=== PATIENT | female | born 1970 | race American Indian/Alaskan Native ===

== ENCOUNTER 2019-06-12 11:43 | Emergency (ER) | payer OTHER, MEDICARE ==
[~2019-06-12] VITALS: Ht 172.7 cm; Wt 80.7 kg
[~2019-06-12 11:43] MED LIST: AMITRIPTYLINE H25 MG PO; AMITRIPTYLINE H50 MG PO; BENADRYL25 MG PO; BUPROPION HCL100 MG PO; BUPROPION HCL150 M2 PO; BUTALB-ACETAMI1 EACH PO; CALCIUM500 MG PO; CLONAZEPAM1 MG PO; CRUTCH1 EACH; DILAUDID4 MG PO; DOXYCYCLINE HYC50 MG PO; FLUOXETINE HCL10 MG PO; FLUOXETINE HCL20 M1 PO; HYDROCODON-ACE1 EAC8 PO; IMITREX100 MG PO; KEFLEX500 MG PO; KLONOPIN1 MG PO; KONDREMUL2.5 ML/5 M PO; MACROBID 100 M100 MG PO; MIRENA1 EACH IY; NORCO 10-325 T1 EACH PO; NORCO 5-325 TA1 EACH PO; OMEPRAZOLE20 MG PO; PERCOCET 5-3251 EACH PO; PREDNISONE20 MG PO; PROZAC20 MG PO; SENNA PLUS TAB1 EACH PO; SENOKOT8.6 MG PO; SUMATRIPTAN SU100 MG PO; SUMATRIPTAN SUC25 MG PO; TOPAMAX25 MG PO; TRAZODONE HCL50 MG PO; VITAMIN B-122500 MCG SL; VITAMIN D350000 UNIT PO; VITAMIN D5000 UNIT PO; ZANAFLEX4 MG PO; ZOLPIDEM TARTRA10 MG PO; [UNRECOGNIZED DRUG - REMARK]
--- OUTSIDE RECORDS SUMMARY | 2019-06-12 11:46 | XMS ---
Christiano Notification: AZAM TIERNEY Security Credit Control Administrator Events No recent Security Events currently on file CRITERIA MET - [place] CARE PROVIDERS Lily Brito Primary [facility] PHONE: Unknown DOCTOR SALAS Primary Care Current PHONE: Unknown RICH VERA Primary [facility] PHONE: Unknown LILY BRITO Primary Care Current PHONE: Unknown LILY BRITO Primary Care 09/23/2013-Current PHONE: Unknown Alesha has no Care Guidelines for this patient. EIdrisDIdris VISIT COUNT (12 MO.) 2 TENA [facility] TOTAL 3 NOTE: Visits indicate total known visits. ED/UCC VISIT TRACKING (12 MO.) 06/12/2019 11:44 [facility] [place] TYPE: Emergency COMPLAINT: - FALL, BACK PAIN 05/09/2019 17:37 [place] [place] TYPE: Emergency COMPLAINT: - CHEST PAIN DIAGNOSES: - Other intermodal customer service (current) drug therapy - Nicotine dependence, unspecified, uncomplicated - Chest pain, unspecified - Allergy status to other antibiotic agents status 06/24/2018 13:50 [facility] TYPE: Emergency DIAGNOSES: 0. EMS MIGRAINE INPATIENT VISIT TRACKING (12 MO.) No inpatient visits to display in this time frame [id number]
[2019-06-12] MEDS ORDERED: CITALOPRAM HBR40 MG PO (11:51)
[2019-06-12] MEDS ORDERED: NORCO 7.5-3251 EACH PO (13:42)
[2019-06-12] MEDS ORDERED: ONDANSETRON ODT8 MG PO (16:56)
== END 2019-06-12 13:59 | disposition home or self-care (01) ==
LOC: ED 11:43
DX: S30.0XXA Contusion of lower back and pelvis, initial encounter (principal); Z88.1 Allergy status to other antibiotic agents; Z79.899 Other long term (current) drug therapy; W10.8XXA Fall (on) (from) other stairs and steps, initial encounter
CPT/HCPCS: 72100; 73502; 99283

== ENCOUNTER 2019-06-12 14:21 | Emergency (ER) | payer OTHER, MEDICARE ==
[~2019-06-12] VITALS: Ht 172.7 cm; Wt 80.7 kg
[~2019-06-12 14:21] MED LIST changes: +CITALOPRAM HBR40 MG PO; +NORCO 7.5-3251 EACH PO
--- OUTSIDE RECORDS SUMMARY | 2019-06-12 14:24 | XMS ---
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 PHONE: Unknown LILY BRITO Primary Care Current PHONE: Unknown LILY BRITO Primary Care 09/23/2013-Current PHONE: Unknown Alesha has no Care Guidelines for this patient. Galindo VISIT COUNT (12 MO.) 3 TENA [facility] TOTAL 4 NOTE: Visits indicate total known visits. ED/UCC VISIT TRACKING (12 MO.) 06/12/2019 14:21 [facility] [place] TYPE: Emergency COMPLAINT: - VOMITING 06/12/2019 11:44 [facility] [place] TYPE: Emergency COMPLAINT: - FALL, BACK PAIN 05/09/2019 17:37 [place] [place] TYPE: Emergency COMPLAINT: - CHEST PAIN DIAGNOSES: - Other [facility] (current) drug therapy - Nicotine dependence, unspecified, uncomplicated - Chest pain, unspecified - Allergy status to other antibiotic agents status 06/24/2018 13:50 [facility] TYPE: Emergency DIAGNOSES: 0. EMS MIGRAINE INPATIENT VISIT TRACKING (12 MO.) No inpatient visits to display in this time frame [id number]
[2019-06-12] MEDS ORDERED: ONDANSETRON ODT8 MG PO (16:56)
== END 2019-06-12 17:10 | disposition home or self-care (01) ==
LOC: ED 14:21
DX: R55 Syncope and collapse (principal); S00.03XA Contusion of scalp, initial encounter; F17.200 Nicotine dependence, unspecified, uncomplicated; Z88.1 Allergy status to other antibiotic agents; Z79.899 Other long term (current) drug therapy; W18.30XA Fall on same level, unspecified, initial encounter
CPT/HCPCS: 99283

== ENCOUNTER 2019-06-24 21:36 | Emergency (ER) | payer OTHER, MEDICARE ==
[~2019-06-24] VITALS: Ht 172.7 cm; Wt 80.7 kg
--- OUTSIDE RECORDS SUMMARY | ~2019-06-24 | XMS | Encounter Summary ---
Demographics + + + | Address | [address] | | | [place] [address] | + + + | Home Phone | | + + + | Preferred Language | Unknown | + + + | Marital Status | Single | + + + | Mandaen Affiliation | LDS | + + + | Race | or | + + + | Ethnic Group | Not or | + + + Author + + + | Author | [facility] | + + + | Organization | [facility] | + + + | Address | Unknown | + + + | Phone | Unavailable | + + + Support + + +---------+ + | Name | Relationship | Address | Phone | + + +---------+ + | Андрей Kenney | ECON | Unknown | | + + +---------+ + Care Team Providers + +------+ + | Care Oil Inspector Name | Role | Phone | + +------+ + | Kwadwo Brito MD | PCP | | + +------+ + Encounter Details +--------+------+ + + + | Date | Type | Department | Care Team | Description | +--------+------+ + + + | 08/13/ | Lab | Laboratory at [facility] | | Dizziness | | 2012 | | [address] | | | | | | [place], [place] | | | | | | [address] | | | | | | [phone] | | | +--------+------+ + + + Social History + +-------+ [...] | + +--------+ + + + | [facility] - CBC ONLY | Routin | 08/13/2013 | Dizziness | Results for this | | | e | 2:25 PM | | procedure are in the | | | | PST | | results section. | + +--------+ + + + | [facility] - COMPLETE | Routin | 08/13/2013 | Dizziness | Results for this | | METABOLIC SET | e | 2:25 PM | | procedure are in the | | | | PST | | results section. | + +--------+ + + + | TSH | Routin | 08/13/2013 | Dizziness | Results for this | | | e | 2:25 PM | | procedure are in the [...] influenced by a variety of environmental | [facility] | | influences, age, gender and ethnicity. The supplied reference limits | LABORATORY | | are based on published values utilizing a similar TSH assay, and | SERVICES, CORE | | should be interpreted with caution. Test now performed at [facility]. New | | | method effective 08/05/13. Age-adjusted reference ranges are in use. | | + + + + + + + + | Performing | Address | City/State/Zipcode | Phone Number | | Organization | | | | + + + + + | [facility] | [address] | [place] [address] | | | SERVICES, CORE | [address] | | | + + + + + [facility] - COMPLETE METABOLIC SET (08/13/2013 2:25 PM [...] | | | LABORATORY | | | [place] | | | SERVICES, | | | [...] | | Interpretive Information: <60 mL/min/1.73 sq | SERVICES, | | m Chronic Kidney Disease <15 mL/min/1.73 | [facility] | | sq m Kidney Failure Estimated GFR greater | HEALTH + | | that 60 mL/min/1.73 sq m is of limited clinical value. The MDRD | HEALING | | equation is not valid in the following situations: - Patients under | | | 18 years of age - Severe malnutrition or obesity - Vegetarian diet | | | - Rapidly changing kidney function | | + + + + + + + + | Performing | Address | City/State/Zipcode | Phone Number | | Organization | | | | + + + + + | [facility] | [address] | [place] [address] | | | [facility] | | | | | HEALTH [...] LABORATORY | | | | | | [facility] | | | | | | [facility] | | | | | | HEALTH + | | | | | | HEALING | | + +-------+ + + + | RED CELL | 4.26 | 4.00 - 5.20 | [facility] | | | COUNT | | M/cu mm | LABORATORY | | | | | | [facility], | | | | | | [facility] | | | | | | [...] SERVICES, | | | | | | [facility] | | | | | | [...] | | | SERVICES, | | | [facility] | | | HEALTH + | | | HEALING | + + + + + + + + | Performing | Address | City/State/Zipcode | Phone Number | | Organization | | | | + + + + + | [facility] | [address] | [place] [address] | | | SERVICES, [facility] | | | | | HEALTH + HEALING | | | | + + + + + documented in this encounter Visit Diagnoses + + | Diagnosis | + + | Dizziness Dizziness and giddiness | + + documented in this encounter"
--- OUTSIDE RECORDS SUMMARY | ~2019-06-24 | XMS | Clinical Summary ---
Demographics + + + | Address | [address] | | | [place] [address] | + + + | Home Phone | | + + + | Preferred Language | Unknown | + + + | Marital Status | Single | + + + | Buddhism Affiliation | LDS | + + + | Race | or | + + + | Ethnic Group | Not or | + + + Author + + + | Author | [facility] | + + + | Organization | [facility] | + + + | Address | Unknown | + + + | Phone | Unavailable | + + + Support + + +---------+ + | Name | Relationship | Address | Phone | + + +---------+ + | Андрей Kenney | ECON | Unknown | | + + +---------+ + Care Team Providers + +------+ + | Care Service Technician Copier Name | Role | Phone | + +------+ + PCP | Unavailable | + +------+ + Source Comments [facility] is fully live on both [facility] and [facility] In[facility] Allergies Not on File Medications + + + +---------+------+------+-------+ | Medication | Sig | Dispensed | Refills | Star | End | Statu | | | | | | t | Date | s | | | | | | Date | | | + + + +---------+------+------+-------+ | CITALOPRAM 40 mg | Take 40 mg by mouth | | 0 | 11 | | Activ | | oral tablet | once daily. | | | 20 | | e | | | | | | 13 | | | + + + +---------+------+------+-------+ | CLONAZEPAM 1 mg | Take 1 mg by mouth | | 0 | 11/1 | | Activ | | oral tablet | as needed. | | | 4/20 | | e | | | | | | 13 | | | + + + +---------+------+------+-------+ | ZOLPIDEM 5 mg oral | Take 5 mg by mouth | | 0 | 10/0 | | Activ | | tablet | as needed. | | | /20 | | e | | | | | | 13 | | | + + + +---------+------+------+-------+ | | Take 5 tablets by | | 0 | 11/1 | | Activ | | HYDROCODONE-ACETAMIN | mouth as needed. | | | 1/20 | | e | | OPHEN 5-325 mg oral | | | | 13 | | | | tablet | | | | | | | + + + +---------+------+------+-------+ | METHOCARBAMOL 500 | Take 500 mg by mouth | | 0 | 11/1 | | Activ | | mg oral tablet | as needed. | | | 10/12 | | e | | | | | | 13 | | | + + + +---------+------+------+-------+ | PLUS WITH | | | 0 | 07/24 | | Activ | | IRON, CA, 29 mg | | | | 02/09 | | e | | iron- 1 mg oral | | | | 13 | | | | tablet | | | | | | | + + + +---------+------+------+-------+ | ferrous gluconate | Take 300 mg by mouth | | 0 | | | Activ | | 325 mg (36 mg iron) | two times daily. | | | | | e | | oral tablet | | | | | | | + + + +---------+------+------+-------+ | CYANOCOBALAMIN, | Take by mouth. | | 0 | | | Activ | | VITAMIN B-12, | | | | | | e | | (VITAMIN B-12 ORAL) | | | | | | | + + + +---------+------+------+-------+ | ERGOCALCIFEROL, | Take 1,500 Units by | | 0 | | | Activ | | VITAMIN D2, (VITAMIN | mouth. | | | | | e | | D ORAL) | | | | | | | + + + +---------+------+------+-------+ Active Problems Not on file Social History [...] | + + Last Filed Vital Signs + + + [...] | | + + + + + Plan of Treatment + + + + + | Health Maintenance | Due Date | Last Done | Comments | + + + + + | Influenza (Flu) | | | | | vaccination (#1) | 9 | | | + + + + + | Pneumococcal | Aged Out | | No longer eligible | | vaccination | | | based on patient's | | | | | age to complete this | | | | | topic | + + + + + Results Not on filefrom Last 3 Months Insurance + +--------+ +--------+ + +--------+ | Payer | Benefi | Subscriber | Effect | Phone | Address | Type | | | t Plan | ID | gaudencio | | | | | | / | | Dates | | | | | | Group | | | | | | + +--------+ +--------+ + +--------+ | [employer] | FIRST | xxxxxxxxx | | | | PPO | | | CHOICE | | 013-Pr | | | | | | | | esent | | | | | | HEALTH | | | | | | + +--------+ +--------+ + +--------+ | MEDICAID [place] | OHP | [id number] | 04/23/20 | [phone] | [address] | [address] | | | PLUS | | 14-Pre | 6 | [address] | id | | | OPEN | | sent | | [place] | | | | CARD | | | | [id number] | | + +--------+ +--------+ + +--------+ + +--------+ +--------+ + + | Guarantor Name | Accoun | Relation to | Date | Phone | Billing Address | | | t Type | Patient | of | | | | | | | | | | + +--------+ +--------+ + + | Sherrie Jewell | Person | Self | [birth year] | [address] | | | al/Fam | | 1970 | [phone] | [place] [address] | | | angela | | | 3 (Home) | | + +--------+ +--------+ + +
--- OUTSIDE RECORDS SUMMARY | ~2019-06-24 | XMS | Encounter Summary ---
Demographics + + + | Address | [address] | | | [place] [address] | + + + | Home Phone | | + + + | Preferred Language | Unknown | + + + | Marital Status | Single | + + + | Jainism Affiliation | LDS | + + + | Race | or | + + + | Ethnic Group | Not or | + + + Author + + + | Author | [facility] | + + + | Organization | [facility] | + + + | Address | Unknown | + + + | Phone | Unavailable | + + + Support + + +---------+ + | Name | Relationship | Address | Phone | + + +---------+ + | Андрей Kenney | ECON | Unknown | | + + +---------+ + Care Team Providers + +------+ + | Care Indigo Mixer Name | Role | Phone | + [...] Ray | | | | | at [facility] | [facility] | | | | | [address] | [place] [address] | | | | | [facility] | | | | | | Mailcode: [address] | | | | | | [facility] | | | | | | [place], | | | | | | [place] [address] | | | | | | [phone] | | | +--------+ + + + [...] + + documented in this encounter Results 12 LEAD ECG (08/13/2013 1:55 PM PST) [...] view image for the detailed interpretation from [employer]. | CARDIOLOGY | + + + + + | Procedure Note | + + | Interface, Cardiology Results - 08/13/2013 10:36 PM PST Please click on view image | | for the detailed interpretation from [employer] results. | + + + + + + + | Performing | Address | City/State/Zipcode | Phone Number | | Organization | | | | + + + + + | [facility] | [address] | [place], [place] | | | CARDIOLOGY | [address] | [address] | | + + + + + documented in this encounter Visit Diagnoses Not on filedocumented in this encounter
--- OUTSIDE RECORDS SUMMARY | ~2019-06-24 | XMS | Encounter Summary ---
Demographics + + + | Address | [address] | | | [place] [address] | + + + | Home Phone | | + + + | Preferred Language | Unknown | + + + | Marital Status | Single | + + + | Scientologist Affiliation | LDS | + + + | Race | or | + + + | Ethnic Group | Not or | + + + Author + + + | Author | [facility] | + + + | Organization | [facility] | + + + | Address | Unknown | + + + | Phone | Unavailable | + + + Support + + +---------+ + | Name | Relationship | Address | Phone | + + +---------+ + | Андрей Kenney | ECON | Unknown | | + + +---------+ + Care Team Providers + +------+ + | Care Coal Hauler Name | Role | Phone | + [...] Ray | | | | | at [facility] | [facility] | | | | | [address] | [place] [address] | | | | | [facility] | | | | | | Mailcode: [id number] [place] | | | | | | [facility] | | | | | | [place], | | | | | | [place] [address] | | | | | | [phone] | | | +--------+ + + + [...] view image for the detailed interpretation from [employer]. | CARDIOLOGY | + + + + + | Procedure Note | + + | Interface, Cardiology Results - 08/13/2013 10:36 PM PST Please click on view image | | for the detailed interpretation from [employer] results. | + + + + + + + | Performing | Address | City/State/Zipcode | Phone Number | | Organization | | | | + + + + + | [facility] | [address] | [place], [place] | | | CARDIOLOGY | [address] | [address] | | + + + + + documented in this encounter Visit Diagnoses Not on filedocumented in this encounter
--- OUTSIDE RECORDS SUMMARY | ~2019-06-24 | XMS | Clinical Summary ---
Demographics + + + | Address | [address] | | | [place] [address] | + + + | Home Phone | | + + + | Preferred Language | Unknown | + + + | Marital Status | Unknown | + + + | Yarsani Affiliation | Unknown | + + + | Race | Unknown | + + + | Ethnic Group | Unknown | + + + Author + + + | Author | [employer] [facility] (Historical as of | | | 05-09-19) | + + + | Organization | [facility] (Historical as of | | | 05-09-19) | + + + | Address | Unknown | + + + | Phone | Unavailable | + + + Care Team Providers + +------+ + | Care Traffic Control Specialist Name | Role | Phone | + +------+ + PP | Unavailable | + +------+ + Allergies Not on File Current Medications Not on file Active Problems Not [...] on file | | + + + Plan of Treatment + [...] filefrom Last 3 Months Insurance + +--------+ +------+-------+ + | Payer | Benefi | Subscriber | Type | Phone | Address | | | t Plan | ID | | | | | | / | | | | | | | Group | | | | | + +--------+ +------+-------+ + | MEDICARE | MEDICA | [id number] | | | [address] | | | RE | | | | [place] [phone] | | | IP-OP | | | | | + +--------+ +------+-------+ + | MEDICAID | [place] | [id number] | | | [address] | | | | | | | [place] | | | MEDICA | | | | [address] | | | ID | | | | | | | OTHER | | | | | + +--------+ +------+-------+ + + +--------+ +--------+ + + | Guarantor Name | Accoun | Relation to | Date | Phone | Billing Address | | | t Type | Patient | of | | | | | | | | | | + +--------+ +--------+ + + | SHERRIE JEWELL | Person | Self | [birth year] | Home: | [address] | | | al/Vladimir | | 1970 | [phone] | [place] [address] | | | angela | | | [address] | | + +--------+ +--------+ + +"
--- OUTSIDE RECORDS SUMMARY | ~2019-06-24 | XMS | Encounter Summary ---
Demographics + + + | Address | [address] | | | [place] [address] | + + + | Home Phone | | + + + | Preferred Language | Unknown | + + + | Marital Status | Single | + + + | Yazdanism Affiliation | LDS | + + + | Race | or | + + + | Ethnic Group | Not or | + + + Author + + + | Author | [facility] | + + + | Organization | [facility] | + + + | Address | Unknown | + + + | Phone | Unavailable | + + + Support + + +---------+ + | Name | Relationship | Address | Phone | + + +---------+ + | Андрей Kenney | ECON | Unknown | | + + +---------+ + Care Team Providers + +------+ + | Care Phlebotomist Prn Name | Role | Phone | + [...] | | CONSULT TO | JOSE | [facility] | | | | | CARDIOLOGY | [address] | [address] | | | | | | MEDICINE | [place], [place] | | | | | | [address] | [address] | | | | | | [address] | Phone: | | | | | | JOSE, | [phone] | | | | | | [place] [address] | Fax: | | | | | | Phone: | [phone] | | | | | | [phone] | | | | | | | Fax: | | | | | | | [phone] | | +--------+--------+ + + + + Encounter Details +--------+---------+ + + + | Date | Type | Department | Care Team | Description | +--------+---------+ + + + | 08/13/ | Office | Cardiology | Raghavendra Gilbert | Dizziness (Primary | | 2012 | Visit | Arrhythmia at [facility] | MD Sarai [address] | Dx) | | | | [address] | [place] [address] | | | | | Mailcode: [facility] | [place], [place] | | | | | [facility] | [address] | | | | | and [place], | [phone] | | | | | [facility] | | | | | | Floor [place], [place] | | | | | | [address] | | | | | | [phone] | | | +--------+---------+ + + + [...] Director, Arrhythmia Service Division of Cardiovascular Medicine [facility] Appointments and Patients: [phone] Division Offices: [phone] Kiara Templeton RN [phone] (a good number to contact us) Batting Machine Operator Insulation implementation lead (after business hours): [phone]. Arrhythmia Service: Raghavendra Gilbert MD, Director. [place] [...] has been in the emergency room in [place] several times with these, and is generally [...] and contro l the episodes, assuming they box turner to be secondary to NMH. The patient asked about a tilt, but I do not think this would provide useful information in this case. I spent 40 minutes with the patient, over half of which was spent in counseling the patient regarding dizziness. Recommendations/Plan: Bloodwork today. Holter monitor. Increase salt and fluid intake. Follow up on mychart. Raghavendra Gilbert M.D. Director, Electrophysiology Associate Property Managerink maker [facility] Cardiovascular [facility] [place] [address] documented in th is encounter Plan of [...] with caution. Test now performed at [facility]. New | | | method effective 08/05/13. Age-adjusted reference ranges are in use. | | + + + + + + + + | Performing | Address | City/State/Zipcode | Phone Number | | Organization | | | | + + + + + | [facility] | [address] | [place] [address] | | | SERVICES, CORE | [address] | | | + + + + + [facility] - COMPLETE METABOLIC SET (08/13/2013 2:25 [...] | | | LABORATORY | | | [place] | | | SERVICES, | | | [...] | Interpretive Information: <60 mL/min/1.73 sq | [facility], | | Chronic Kidney Disease <15 mL/min/1.73 | [facility] | | sq m Kidney Failure Estimated [...] + + + + + | [facility] | [address] | [place] [address] | | | [facility], [facility] | | | | | [facility] + HEALING | | | | + [...] | + + + + + | [facility] | [address] | [place] [address] | | | SERVICES, [place] [facility] | | | | | HEALTH [...] a 48 hour Holter | | [facility] DEPT | | | DIAGNOSIS | monitor [...] GILBERT | | | | | | ([id number]) on 09/07/2013 | | | | | | 9:08:12 AM | | | | + + + + + + + + | Specimen | + + | | + + + + + | Narrative | Performed At | + + + | Please click | [facility] | | on view image for the detailed interpretation from [employer] results. | CARDIOLOGY | + + + + + | Procedure Note | + + | Interface, Cardiology Results - 09/07/2013 9:08 AM PST Please click on view image | | for the detailed interpretation from [employer] results. | + + + + + + + | Performing | Address | City/State/Zipcode | Phone Number | | Organization | | | | + + + + + | [facility] | [address] | [place], [place] | | | CARDIOLOGY | [address] | [address] | | + + + + + [...] view image for the detailed interpretation from [employer] results. | CARDIOLOGY | + + + + + | Procedure Note | + + | Interface, Cardiology Results - 08/13/2013 10:36 PM PST Please click on view image | | for the detailed interpretation from [employer] results. | + + + + + + + | Performing | Address | City/State/Zipcode | Phone Number | | Organization | | | | + + + + + | [facility] | [address] | [place], [place] | | | CARDIOLOGY | [address] | [address] | | + + + + + documented in this encounter Visit Diagnoses + + | Diagnosis | + + | Dizziness - Primary Dizziness and giddiness | + + documented in this encounter
--- OUTSIDE RECORDS SUMMARY | ~2019-06-24 | XMS | Encounter Summary ---
Demographics + + + | Address | [address] | | | [place] [address] | + + + | Home Phone | | + + + | Preferred Language | Unknown | + + + | Marital Status | Single | + + + | Confucianist Affiliation | LDS | + + + | Race | or | + + + | Ethnic Group | Not or | + + + Author + + + | Author | [facility] | + + + | Organization | [facility] | + + + | Address | Unknown | + + + | Phone | Unavailable | + + + Support + + +---------+ + | Name | Relationship | Address | Phone | + + +---------+ + | Андрей Kenney | ECON | Unknown | | + + +---------+ + Care Team Providers + +------+ + | Care Shaker Operator Name | Role | Phone | + [...] Encounter | Non-Invasive Testing | [address] | | | | | at [facility] | [facility] | | | | | [address] | [place] [address] | | | | | [facility] | | | | | | Mailcode: [id number] [address] | | | | | | [facility] | | | | | | [place], | | | | | | [place] [address] | | | | | | [phone] | | | +--------+ + + + [...] is a 48 hour Holter | | [facility] DEPT | | | DIAGNOSIS [...] GILBERT | | | | | | (0514) on 09/07/2013 | | | | | | 9:08:12 AM | | | | + + + + + + + + | Specimen | + + | | + + + + + | Narrative | Performed At | + + + | Please click | [facility] | | on view image for the detailed interpretation from [employer] results. | CARDIOLOGY | + + + + + | Procedure Note | + + | Interface, Cardiology Results - 09/07/2013 9:08 AM PST Please click on view image | | for the detailed interpretation from [employer] results. | + + + + + + + | Performing | Address | City/State/Zipcode | Phone Number | | Organization | | | | + + + + + | [facility] | [address] | [place], [place] | | | CARDIOLOGY | [address] | [address] | | + + + + + documented in this encounter Visit Diagnoses Not on filedocumented in this encounter"
--- OUTSIDE RECORDS SUMMARY | ~2019-06-24 | XMS | Clinical Summary ---
Demographics + + + | Address | [address] | | | [place] [address] | + + + | Home Phone | | + + + | Preferred Language | Unknown | + + + | Marital Status | Single | + + + | Buddhism Affiliation | Unknown | + + + | Race | Unknown | + + + | Ethnic Group | Unknown | + + + Author + + + | Author | [facility] | | | and [place] | [...] Team Providers + +------+ + | Care Billet Worker Name | Role | Phone | + [...] [place] | | | | | | [address] | | | | | | | [...] +--------+ +---------+--------+ | MEDICARE | MEDICA | [id number] | | [phone] | | Medica | | | RE | | 019-Pr | 5 | | re | | | PART A | | esent | | | | | | AND B | | | | | | + +--------+ +--------+ +---------+--------+ | [facility] | IHS | [id number] | | | | Indemn | | [...] | | al/Vladimir | | 1970 | [phone] | [place] [address] | | | [place] | | | 6 (Home) | | + +--------+ +--------+ + + Advance Directives Patient has advance care planning documents on file. For more information, please contact:[facility] [place] [address]"
--- OUTSIDE RECORDS SUMMARY | ~2019-06-24 | XMS | Clinical Summary ---
Demographics + + + | Address | [address] | | | [place] [address] | + + + | Home Phone | | + + + | Preferred Language | Unknown | + + + | Marital Status | Single | + + + | Hinduism Affiliation | Unknown | + + + | Race | Unknown | + + + | Ethnic Group | Unknown | + + + Author + + + | Author | [facility] | | | and [place] | + + + | Organization | [facility] | | [...] Team Providers + +------+ + | Care Acid Purifier Name | Role | Phone | + [...] [place] | | | | | | [address] | | | | | | | [...] +--------+ +---------+--------+ | MEDICARE | MEDICA | [id number] | | [phone] | | Medica | | | RE | | 019-Pr | 5 | | re | | | PART A | | esent | | | | | | AND B | | | | | | + +--------+ +--------+ +---------+--------+ | [facility] | IHS | [id number] | | | | Indemn | | [...] | | al/Vladimir | | 1970 | [phone] | [place] [address] | | | [place] | | | 6 (Home) | | + +--------+ +--------+ + + Advance Directives Patient has advance care planning documents on file. For more information, please contact:[facility] [place] [address]"
--- OUTSIDE RECORDS SUMMARY | ~2019-06-24 | XMS | Clinical Summary ---
Demographics + + + | Address | [address] | | | [place] [address] | + + + | Home Phone [...] Team Providers + +------+ + | Care Informaticist Name | Role | Phone | + +------+ + PCP | Unavailable | + +------+ + Source Comments [facility] is fully live on both [facility] and [facility] InPatient.[facility] Allergies Not on File Medications + + [...] PLUS | | 14-Pre | 6 | [address] | id | | | OPEN | | sent | | [place] | | | | CARD | | | | [id number] | | + +--------+ +--------+ + +--------+ [...] | 1970 | [phone] | [place] [address] | | | [place] | | | 3 (Home) | | + +--------+ +--------+ + +
--- OUTSIDE RECORDS SUMMARY | ~2019-06-24 | XMS | Encounter Summary ---
Demographics + + + | Address | [address] | | | [place] [address] | + + + | Home Phone | | + + + | Preferred Language | Unknown | + + + | Marital Status | Single | + + + | Adventism Affiliation | LDS | + + + | Race | or | + + + | Ethnic Group | Not or | + + + Author + + + | Author | [facility] | + + + | Organization | [facility] | + + + | Address | Unknown | + + + | Phone | Unavailable | + + + Support + + +---------+ + | Name | Relationship | Address | Phone | + + +---------+ + | Андрей Kenney | ECON | Unknown | | + + +---------+ + Care Team Providers + +------+ + | Care Supervisor Speech Name | Role | Phone | + +------+ + PCP | Unavailable | + +------+ + Encounter Details +--------+ + + + + | Date | Type | Department | Care Team | Description | +--------+ + + + + | 07/03/ | Abstract | Cardiology | Unknown . | | | 2012 | | Arrhythmia at [facility] | | | | | | [address] | | | | | | Mailcode: [address] | | | | | | [facility] | | | | | | and Healing, | | | | | | Building | | | | | | [place], [place] | | | | | | [address] | | | | | | [phone] | | | +--------+ + + + [...]
--- OUTSIDE RECORDS SUMMARY | ~2019-06-24 | XMS | Clinical Summary ---
Demographics + + + | Address | [address] | | | [place] [address] | + + + | Home Phone | | + + + | Preferred Language | Unknown | + + + | Marital Status | Unknown | + + + | Presybeterian Affiliation | Unknown | + + + | Race | Unknown | + + + | Ethnic Group | Unknown | + + + Author + + + | Author | [facility] (Historical as of | | | 05-09-19) | + + + | Organization | [facility] (Historical as of | | | 05-09-19) | + + + | Address | Unknown | + + + | Phone | Unavailable | + + + Care Team Providers + +------+ + | Care Orthopaedic Physician Assistant Name | Role | Phone | + [...] +------+-------+ + | MEDICARE | MEDICA | [id number] | | | [address] | | | RE | | | | [place] [address] | | | IP-OP | | | | | + +--------+ +------+-------+ + | MEDICAID | [place] | [id number] | | | [address] | | | | | | | [place] | | | MEDICA | | | | [address] | | | [place] | | | [...] | 1970 | [phone] | [place] [address] | | | [place] | | | [phone] | | + +--------+ +--------+ + +"
--- OUTSIDE RECORDS SUMMARY | ~2019-06-24 | XMS | Encounter Summary ---
Demographics + + + | Address | [address] | | | [place] [address] | + + + | Home Phone | | + + + | Preferred Language | Unknown | + + + | Marital Status | Single | + + + | Voodoo Affiliation | LDS | + + + | Race | or | + + + | Ethnic Group | Not or | + + + Author + + + | Author | [facility] | + + + | Organization | [facility] | + + + | Address | Unknown | + + + | Phone | Unavailable | + + + Support + + +---------+ + | Name | Relationship | Address | Phone | + + +---------+ + | Андрей Kenney | ECON | Unknown | | + + +---------+ + Care Team Providers + +------+ + | Care Cloth Washer Name | Role | Phone | + [...] Ray | | | | | at [facility] | [facility] | | | | | [address] | [place] [address] | | | | | [facility] | | | | | | Mailcode: OP12B [place] | | | | | | [facility] | | | | | | [place], | | | | | | [place] [address] | | | | | | [phone] | | | +--------+ + + + [...] is a 48 hour Holter | | [facility] DEPT | | | DIAGNOSIS | [...] GILBERT | | | | | | (3384) on 09/07/2013 | | | | | | 9:08:12 AM | | | | + + + + + + + + | Specimen | + + | | + + + + + | Narrative | Performed At | + + + | Please click | [facility] | | on view image for the detailed interpretation from [employer] results. | CARDIOLOGY | + + + + + | Procedure Note | + + | Interface, Cardiology Results - 09/07/2013 9:08 AM PST Please click on view image | | for the detailed interpretation from [employer] results. | + + + + + + + | Performing | Address | City/State/Zipcode | Phone Number | | Organization | | | | + + + + + | [facility] | [address] | [place], [place] | | | CARDIOLOGY | [address] | [address] | | + + + + + documented in this encounter Visit Diagnoses Not on filedocumented in this encounter"
--- OUTSIDE RECORDS SUMMARY | ~2019-06-24 | XMS | Encounter Summary ---
Demographics + + + | Address | [address] | | | [place] [address] | + + + | Home Phone [...] Author + + + | Author | [facility] | + + + | Organization | [facility] | + + + | Address | Unknown | + + + | Phone | Unavailable | + + + Support + + +---------+ + | Name | Relationship | Address | Phone | + + +---------+ + | Андрей Kenney | ECON | Unknown | | + + +---------+ + Care Team Providers + +------+ + | Care C 13 Catapult Operator Name | Role | Phone | + +------+ + PCP | Unavailable | + +------+ + Encounter Details +--------+ + + + + | Date | Type | Department | Care Team | Description | +--------+ + + + + | 07/03/ | Abstract | Cardiology | Unknown . | | | 2012 | | Arrhythmia at [facility] | | | | | | [address] | | | | | | Mailcode: [address] | | | | | | [facility] | | | | | | and Healing, | | | | | | Building | | | | | | [place], [place] | | | | | | [address] | | | | | | [phone] | | | +--------+ + + + [...]
--- OUTSIDE RECORDS SUMMARY | ~2019-06-24 | XMS | Encounter Summary ---
Demographics + + + | Address | [address] | | | [place] [address] | + + + | Home Phone | | + + + | Preferred Language | Unknown | + + + | Marital Status | Single | + + + | Islam Affiliation | LDS | + + + | Race | or | + + + | Ethnic Group | Not or | + + + Author + + + | Author | [facility] | + + + | Organization | [facility] | + + + | Address | Unknown | + + + | Phone | Unavailable | + + + Support + + +---------+ + | Name | Relationship | Address | Phone | + + +---------+ + | Андрей Kenney | ECON | Unknown | | + + +---------+ + Care Team Providers + +------+ + | Care Creative Lead Name | Role | Phone | [...] | | CONSULT TO | JOSE | [facility] | | | | | CARDIOLOGY | [address] | [address] | | | | | | MEDICINE | [place], [place] | | | | | | [address] | [address] | | | | | | [address] | Phone: | | | | | | [place], | [phone] | | | | | | [place] [address] | Fax: | | | | | | Phone: | [phone] | | | | | | [phone] | | | | | | | Fax: | | | | | | | [phone] | | +--------+--------+ + + + + Encounter Details +--------+---------+ + + + | Date | Type | Department | Care Team | Description | +--------+---------+ + + + | 08/13/ | Office | Cardiology | Raghavendra Gilbert | Dizziness (Primary | | 2012 | Visit | Arrhythmia at [facility] | MD Sarai [address] | Dx) | | | | [address] | [place] | | | | | Mailcode: [facility] | [place], [place] | | | | | [facility] | [address] | | | | | and [place], | [phone] | | | | | [facility] | | | | | | Floor [place], [place] | | | | | | [address] | | | | | | [phone] | | | +--------+---------+ + + + [...] Director, Arrhythmia Service Division of Cardiovascular Medicine [facility] Appointments and Patients: [phone] Division Offices: [phone] Kiara Templeton RN [phone] (a good number to contact us) Double Needle Operator Lock[employer]ch medical information specialist (after business hours): [phone]. Arrhythmia Service: Raghavendra Gilbert MD, Director. 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 The patient asked about a tilt, but I do not think this would provide useful information in this case. I spent 40 minutes with the patient, over half of which was spent in counseling the patient regarding dizziness. Recommendations/Plan: Bloodwork today. Holter monitor. Increase salt and fluid intake. Follow up on mychart. Raghavendra Gilbert M.D. Director, Electrophysiology Tile Installerafrican studies professor [facility] Cardiovascular [facility] [place] [address] documented in th is encounter Plan of [...] interpreted with caution. Test now performed at [facility]. New | | | method effective 08/05/13. Age-adjusted reference ranges are in use. | | + + + + + + + + | Performing | Address | City/State/Zipcode | Phone Number | | Organization | | | | + + + + + | [facility] | [address] | [place] [address] | | | SERVICES, CORE | [address] | | | + + + + + [facility] - COMPLETE METABOLIC SET (08/13/2013 2:25 PM [...] | | | LABORATORY | | | [place] | | | SERVICES, | | | [...] | Interpretive Information: <60 mL/min/1.73 sq | [facility], | | Chronic Kidney Disease <15 mL/min/1.73 | [facility] | | sq m Kidney Failure Estimated [...] | + + + + + | [facility] | [address] | [place] [address] | | | [facility], [facility] | | | | | [facility] + HEALING | | | | + [...] | + + + + + | [facility] | [address] | [place] [address] | | | SERVICES, [facility] FOR | | | | | HEALTH [...] is a 48 hour Holter | | [facility] DEPT | | | DIAGNOSIS [...] GILBERT | | | | | | (6034) on 09/07/2013 | | | | | | 9:08:12 AM | | | | + + + + + + + + | Specimen | + + | | + + + + + | Narrative | Performed At | + + + | Please click | [facility] | | on view image for the detailed interpretation from [employer] results. | CARDIOLOGY | + + + + + | Procedure Note | + + | Interface, Cardiology Results - 09/07/2013 9:08 AM PST Please click on view image | | for the detailed interpretation from [employer] results. | + + + + + + + | Performing | Address | City/State/Zipcode | Phone Number | | Organization | | | | + + + + + | [facility] | [address] | [place], [place] | | | CARDIOLOGY | [address] | [address] | | + + + + + [...] view image for the detailed interpretation from [employer] results. | CARDIOLOGY | + + + + + | Procedure Note | + + | Interface, Cardiology Results - 08/13/2013 10:36 PM PST Please click on view image | | for the detailed interpretation from [employer] results. | + + + + + + + | Performing | Address | City/State/Zipcode | Phone Number | | Organization | | | | + + + + + | [facility] | [address] | [place], [place] | | | CARDIOLOGY | [address] | [address] | | + + + + + documented in this encounter Visit Diagnoses + + | Diagnosis | + + | Dizziness - Primary Dizziness and giddiness | + + documented in this encounter
--- OUTSIDE RECORDS SUMMARY | ~2019-06-24 | XMS | Encounter Summary ---
Demographics + + + | Address | [address] | | | [place] [address] | + + + | Home Phone [...] Author + + + | Author | [facility] | + + + | Organization | [facility] | + + + | Address | Unknown | + + + | Phone | Unavailable | + + + Support + + +---------+ + | Name | Relationship | Address | Phone | + + +---------+ + | Андрей Kenney | ECON | Unknown | | + + +---------+ + Care Team Providers + +------+ + | Care Golf Course Keeper Name | Role | Phone | + [...] [address] | | | | | | [place], [place] | | | | | | [address] | | | | | | [phone] | | | +--------+------+ + + + [...] influenced by a variety of environmental | [facility] | | influences, age, gender and ethnicity. The supplied reference limits | LABORATORY | | are based on published values utilizing a similar TSH assay, and | SERVICES, CORE | | should be interpreted with caution. Test now performed at [facility]. New | | | method effective 08/05/13. Age-adjusted reference ranges are in use. | | + + + + + + + + | Performing | Address | City/State/Zipcode | Phone Number | | Organization | | | | + + + + + | [facility] | [address] | [place] [address] | | | SERVICES, CORE | [address] | | | + + + + + [facility] - COMPLETE METABOLIC SET (08/13/2013 [...] | | | LABORATORY | | | [place] | | | SERVICES, | | | [...] LABORATORY | [address] | [place] [address] | | | [facility] [place] [facility] | | | | | HEALTH [...] | | | | | | [facility], | | | | | | CENTER FOR | | | | | | HEALTH + | | | | | | HEALING | | + +-------+ + + + | RED CELL | 4.26 | 4.00 - 5.20 | [facility] | | | COUNT | | M/cu mm | LABORATORY | | | | | | [facility], | | | | | | [place] [facility] | | | | | | [...] SERVICES, | | | | | | [place] [facility] | | | | | | [...] | | | SERVICES, | | | [facility] | | | HEALTH + | | | HEALING | + + + + + + + + | Performing | Address | City/State/Zipcode | Phone Number | | Organization | | | | + + + + + | [facility] | [address] | [place] [address] | | | SERVICES, [place] | | | | | HEALTH + HEALING | | | | + + + + + documented in this encounter Visit Diagnoses + + | Diagnosis | + + | Dizziness Dizziness and giddiness | + + documented in this encounter"
[~2019-06-24 21:36] MED LIST changes: +ONDANSETRON ODT8 MG PO
--- OUTSIDE RECORDS SUMMARY | 2019-06-24 21:38 | XMS ---
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 [place] VISIT COUNT (12 MO.) 4 TENA [facility] TOTAL 5 NOTE: Visits indicate total known visits. ED/UCC VISIT TRACKING (12 MO.) 06/24/2019 21:36 [facility] [place] TYPE: Emergency COMPLAINT: - PAIN 06/12/2019 14:21 [facility] [place] TYPE: Emergency COMPLAINT: - VOMITING DIAGNOSES: - Nicotine dependence, unspecified, uncomplicated - Allergy status to other antibiotic agents status - Other senior care (current) drug therapy - Syncope and collapse - Contusion of scalp, initial encounter - Fall on same level, unspecified, initial encounter 06/12/2019 11:44 [facility] [place] TYPE: Emergency COMPLAINT: - FALL, BACK PAIN DIAGNOSES: - Other senior care (current) drug therapy - Low back pain - Contusion of lower back and pelvis, initial encounter - Fall (on) (from) other stairs and steps, initial encounter - Allergy status to other antibiotic agents status 05/09/2019 17:37 [facility] [place] TYPE: Emergency COMPLAINT: - CHEST PAIN DIAGNOSES: - Other senior care (current) drug therapy - Nicotine dependence, unspecified, uncomplicated - Chest pain, unspecified - Allergy status to other antibiotic agents status 06/24/2018 13:50 [facility] TYPE: Emergency DIAGNOSES: 0. EMS MIGRAINE INPATIENT VISIT TRACKING (12 MO.) No inpatient visits to display in this time frame [id number]
[2019-06-24] MEDS ORDERED: KETOROLAC TROME10 MG PO (21:51)
[2019-06-24] MEDS ORDERED: NUCYNTA50 MG PO (22:18)
== END 2019-06-24 22:24 | disposition home or self-care (01) ==
LOC: ED 21:36
DX: S30.0XXA Contusion of lower back and pelvis, initial encounter (principal); F17.200 Nicotine dependence, unspecified, uncomplicated; Z88.1 Allergy status to other antibiotic agents; Z88.5 Allergy status to narcotic agent; Z79.899 Other long term (current) drug therapy; W10.8XXA Fall (on) (from) other stairs and steps, initial encounter
CPT/HCPCS: 99283

== ENCOUNTER 2019-07-06 09:39 | Emergency (ER) | payer MEDICARE, OTHER ==
[~2019-07-06] VITALS: Ht 172.7 cm; Wt 80.7 kg
--- OUTSIDE RECORDS SUMMARY | ~2019-07-06 | XMS | Clinical Summary ---
Demographics + + + | Address | [address] | | | [place] [address] | + + + | Home Phone | | + + + | Preferred Language | Unknown | + + + | Marital Status | Single | + + + | Jewish Affiliation | Unknown | + + + | Race | Unknown | + + + | Ethnic Group | Unknown | + + + Author + + + | Author | [facility] | | | and [place] | + + + | Organization | [facility] | | | and [place] | + + + | Address | Unknown | + + + | Phone | Unavailable | + + + Support + + +---------+ + | Name | Relationship | Address | Phone | + + +---------+ + | Dion Nelson | KAUSHIK | Unknown | | + + +---------+ + Care Team Providers + +------+ + | Care Bobbin Cleaner Hand Name | Role | Phone | + +------+ + | Panfilo Romo | PCP | | + +------+ + Allergies Not on File Medications Not on file Active Problems Not on file Social History + +-------+ +--------+------+ | Tobacco Use | Types | Packs/Day | Years | Date | | | | | Used | | + +-------+ +--------+------+ | Never Assessed | | | | | + +-------+ +--------+------+ + + + | Sex Assigned at | Date Recorded | | | | + + + | Not on file | | + + + + + + + | Job Start Date | Occupation | Industry | + + + + | Not on file | Not on file | Not on file | + + + + + + + + | Travel History | Travel Start | Travel End | + + + + + + | No recent travel history available. | + + Last Filed Vital Signs Not on file Plan of Treatment +--------+---------+ + + + | Date | Type | Specialty | Care Team | Description | +--------+---------+ + + + | 08/17/ | Office | Sleep Medicine | Adri Metz MD | | | 2019 | Visit | | [address] | | | | | | [place] | | | | | | [address] | | | | | | | | +--------+---------+ + + + + + + + + | Health Maintenance | Due Date | Last Done | Comments | + + + + + | Vaccine: | | | | | Dtap/Tdap/Td (1 - | 0 | | | | Tdap) | | | | + + + + + | Cervical Cancer | | | | | Screening (Pap) | 1 | | | + + + + + | Breast Cancer | | | | | Screening | 6 | | | + + + + + | Vaccine: Influenza | | | | | (#1) | 9 | | | + + + + + | Adult Annual | | | | | Wellness Visit | 9 | | | + + + + + Results Not on filefrom Last 3 Months Insurance + +--------+ +--------+ +---------+--------+ | Payer | Benefi | Subscriber | Effect | Phone | Address | Type | | | t Plan | ID | gaudencio | | | | | | / | | Dates | | | | | | Group | | | | | | + +--------+ +--------+ +---------+--------+ | MEDICARE | MEDICA | [id number] | | [phone] | | Medica | | | RE | | 019-Pr | 5 | | re | | | PART A | | esent | | | | | | AND B | | | | | | + +--------+ +--------+ +---------+--------+ | [facility] | IHS | [id number] | | | | Indemn | | SERVICE | YELLOW | | 019-Pr | | | ity | | | HAWK | | esent | | | | + +--------+ +--------+ +---------+--------+ + +--------+ +--------+ + + | Guarantor Name | Accoun | Relation to | Date | Phone | Billing Address | | | t Type | Patient | of | | | | | | | | | | + +--------+ +--------+ + + | Sherrie Jewell | Person | Self | [birth year] | [address] | | | al/Vladimir | | 1970 | [phone] | [place] [address] | | | angela | | | 6 (Home) | | + +--------+ +--------+ + + Advance Directives Patient has advance care planning documents on file. For more information, please contact:[facility] [place] [address]"
--- OUTSIDE RECORDS SUMMARY | ~2019-07-06 | XMS | Encounter Summary ---
Demographics + + + | Address | [address] | | | [place] [address] | + + + | Home Phone | | + + + | Preferred Language | Unknown | + + + | Marital Status | Single | + + + | Caodaism Affiliation | LDS | + + + | Race | or | + + + | Ethnic Group | Not or | + + + Author + + + | Author | [facility] | + + + | Organization | [facility] | + + + | Address | Unknown | + + + | Phone | Unavailable | + + + Support + + +---------+ + | Name | Relationship | Address | Phone | + + +---------+ + | Андрей Kenney | ECON | Unknown | | + + +---------+ + Care Team Providers + +------+ + | Care Roastmaster Name | Role | Phone | + +------+ + | Kwadwo Brito MD | PCP | | + +------+ + Encounter Details +--------+ + + + + | Date | Type | Department | Care Team | Description | +--------+ + + + + | 08/13/ | Hospital | Cardiac | Sjh, Car Ecg Tech | | | 2012 | Encounter | Non-Invasive Testing | [address] | | | | | at [facility] | [facility] | | | | | [address] | [place] [address] | | | | | [facility] | | | | | | Mailcode: OP12B Cory | | | | | | [facility] | | | | | | [place], | | | | | | [place] [address] | | | | | | [phone] | | | +--------+ + + + [...] + + documented as of this encounter Medications at Time of Discharge + + + +---------+ + + | Medication | Sig | Dispensed | Refills | Start | End Date | | | | | | Date | | + + + +---------+ + + | CITALOPRAM 40 mg | Take 40 mg by mouth | | 0 | 08/06/20 | | | oral tablet | once daily. | | | 13 | | + + + +---------+ + + | CLONAZEPAM 1 mg | Take 1 mg by mouth | | 0 | 08/06/20 | | | oral tablet | as needed. | | | 13 | | + + + +---------+ + + | CYANOCOBALAMIN, | Take by mouth. | | 0 | | | | VITAMIN B-12, | | | | | | | (VITAMIN B-12 ORAL) | | | | | | + + + +---------+ + + | ERGOCALCIFEROL, | Take 1,500 Units by | | 0 | | | | VITAMIN D2, (VITAMIN | mouth. | | | | | | D ORAL) | | | | | | + + + +---------+ + + | ferrous gluconate | Take 300 mg by mouth | | 0 | | | | 325 mg (36 mg iron) | two times daily. | | | | | | oral tablet | | | | | | + + + +---------+ + + | | Take 5 tablets by | | 0 | 08/03/20 | | | HYDROCODONE-ACETAMIN | mouth as needed. | | | 13 | | | OPHEN 5-325 mg oral | | | | | | | tablet | | | | | | + + + +---------+ + + | METHOCARBAMOL 500 | Take 500 mg by mouth | | 0 | 08/03/20 | | | mg oral tablet | as needed. | | | 13 | | + + + +---------+ + + | PLUS WITH | | | 0 | 08/07/20 | | | IRON, CA, 29 mg | | | | 13 | | | iron- 1 mg oral | | | | | | | tablet | | | | | | + + + +---------+ + + | ZOLPIDEM 5 mg oral | Take 5 mg by mouth | | 0 | 06/23/20 | | | tablet | as needed. | | | 13 | | + + + +---------+ + + documented as of this encounter [...] + + documented in this encounter Results HOLTER MONITOR (24 HR OR 48 HR) - ECG (08/13/2013 2:07 PM PST) + + + + + + | Component | Value | Ref Range | Performed | Pathologist | | | | | At | Signature | + + + + + + | EKG | This is a 48 hour Holter | | [facility] | | | DIAGNOSIS | [...] by | | | | | | ANGELITA GILBERT | | | | | | ([id number]) on 09/07/2013 | | | | | | 9:08:12 AM | | | | + + + + + + + + | Specimen | + + | | + + + + + | Narrative | Performed At | + + + | Please click | [facility] | | on view image for the detailed interpretation from [employer] results. | CARDIOLOGY | + + + + + | Procedure Note | + + | Interface, Cardiology Results - 09/07/2013 9:08 AM PST Please click on view image | | for the detailed interpretation from [employer] results. | + + + + + + + | Performing | Address | City/State/Zipcode | Phone Number | | Organization | | | | + + + + + | [facility] | [address] | [place], [place] | | | CARDIOLOGY | [address] | [address] | | + + + + + documented in this encounter Visit Diagnoses Not on filedocumented in this encounter"
--- OUTSIDE RECORDS SUMMARY | ~2019-07-06 | XMS | Encounter Summary ---
Demographics + + + | Address | [address] | | | [place] [address] | + + + | Home Phone | | + + + | Preferred Language | Unknown | + + + | Marital Status | Single | + + + | Faith Affiliation | LDS | + + + | Race | or | + + + | Ethnic Group | Not or | + + + Author + + + | Author | [facility] | + + + | Organization | [facility] | + + + | Address | Unknown | + + + | Phone | Unavailable | + + + Support + + +---------+ + | Name | Relationship | Address | Phone | + + +---------+ + | Андрей Kenney | ECON | Unknown | | + + +---------+ + Care Team Providers + +------+ + | Care Laboratory Machinist Name | Role | Phone | + [...] | | CONSULT TO | JOSE | [facility] | | | | | CARDIOLOGY | FAMILY | Rd | | | | | | MEDICINE | [place], [place] | | | | | | [address] | [address] | | | | | | [address] | Phone: | | | | | | [place], | [phone] | | | | | | [place] [address] | Fax: | | | | | | Phone: | [phone] | | | | | | [phone] | | | | | | | Fax: | | | | | | | [phone] | | +--------+--------+ + + + + Encounter Details +--------+---------+ + + + | Date | Type | Department | Care Team | Description | +--------+---------+ + + + | 08/13/ | Office | Cardiology | Raghavendra Gilbert | Dizziness (Primary | | 2012 | Visit | Arrhythmia at [facility] | MD Sarai [address] | Dx) | | | | [address] | [place] | | | | | Mailcode: [facility] | [place], [place] | | | | | [facility] | [address] | | | | | and [place], | [phone] | | | | | [facility] | | | | | | Floor [place], [place] | | | | | | [address] | | | | | | [phone] | | | +--------+---------+ + + + [...] Director, Arrhythmia Service Division of Cardiovascular Medicine [facility] Appointments and Patients: [phone] Division Offices: [phone] Kiara Templeton RN [phone] (a good number to contact us) Road Conductor operations research analyst (after business hours): [phone]. Arrhythmia Service: Raghavendra Gilbert MD, Director. [place] [...] has been in the emergency room in [place] several times with these, and is generally [...] and contro l the episodes, assuming they rim turning finisher to be secondary to NMH. The patient asked about a tilt, but I do not think this would provide useful information in this case. I spent 40 minutes with the patient, over half of which was spent in counseling the patient regarding dizziness. Recommendations/Plan: Bloodwork today. Holter monitor. Increase salt and fluid intake. Follow up on mychart. Raghavendra Gilbert M.D. Director, Electrophysiology Pediatric Speech Language Pathologistboarder steam [facility] Cardiovascular [facility] [place] [address] documented in th is encounter Plan of [...] interpreted with caution. Test now performed at [facility]. New | | | method effective 08/05/13. Age-adjusted reference ranges are in use. | | + + + + + + + + | Performing | Address | City/State/Zipcode | Phone Number | | Organization | | | | + + + + + | [facility] | [address] | [place] [address] | | | SERVICES, CORE | [address] | | | + + + + + [facility] - COMPLETE METABOLIC SET (08/13/2013 2:25 [...] | | | LABORATORY | | | RUSSIAN | | | SERVICES, | | | [...] Interpretive Information: <60 mL/min/1.73 sq m | [facility], | | Chronic Kidney Disease <15 mL/min/1.73 sq m | [facility] | | Kidney Failure Estimated GFR [...] | + + + + + | [facility] | [address] | [place] [address] | | | [facility], [facility] | | | | | HEALTH [...] | + + + + + | [facility] | [address] | [place] [address] | | | SERVICES, [facility] | | | | | HEALTH [...] is a 48 hour Holter | | [facility] DEPT | | | DIAGNOSIS | monitor [...] GILBERT | | | | | | ([id number]) on 09/07/2013 | | | | | | 9:08:12 AM | | | | + + + + + + + + | Specimen | + + | | + + + + + | Narrative | Performed At | + + + | Please click | [facility] | | on view image for the detailed interpretation from [email or web address] results. | CARDIOLOGY | + + + + + | Procedure Note | + + | Interface, Cardiology Results - 09/07/2013 9:08 AM PST Please click on view image | | for the detailed interpretation from [email or web address] results. | + + + + + + + | Performing | Address | City/State/Zipcode | Phone Number | | Organization | | | | + + + + + | [facility] | [address] | [place], [place] | | | CARDIOLOGY | [address] | [address] | | + + + + + [...] view image for the detailed interpretation from [email or web address] results. | CARDIOLOGY | + + + + + | Procedure Note | + + | Interface, Cardiology Results - 08/13/2013 10:36 PM PST Please click on view image | | for the detailed interpretation from [employer] results. | + + + + + + + | Performing | Address | City/State/Zipcode | Phone Number | | Organization | | | | + + + + + | [facility] | [address] | [place], [place] | | | CARDIOLOGY | [address] | [address] | | + + + + + documented in this encounter Visit Diagnoses + + | Diagnosis | + + | Dizziness - Primary Dizziness and giddiness | + + documented in this encounter
--- OUTSIDE RECORDS SUMMARY | ~2019-07-06 | XMS | Encounter Summary ---
Demographics + + + | Address | [address] | | | [place] [address] | + + + | Home Phone | | + + + | Preferred Language | Unknown | + + + | Marital Status | Single | + + + | Church Affiliation | LDS | + + + | Race | or | + + + | Ethnic Group | Not or | + + + Author + + + | Author | [facility] | + + + | Organization | [facility] | + + + | Address | Unknown | + + + | Phone | Unavailable | + + + Support + + +---------+ + | Name | Relationship | Address | Phone | + + +---------+ + | Андрей Kenney | ECON | Unknown | | + + +---------+ + Care Team Providers + +------+ + | Care Truck Caterer Name | Role | Phone | + [...] | | CONSULT TO | JOSE | [facility] | | | | | CARDIOLOGY | FAMILY | Rd | | | | | | MEDICINE | [place], [place] | | | | | | [address] | [address] | | | | | | [address] | Phone: | | | | | | [place], | [phone] | | | | | | [place] [address] | Fax: | | | | | | Phone: | [phone] | | | | | | [phone] | | | | | | | Fax: | | | | | | | [phone] | | +--------+--------+ + + + + Encounter Details +--------+---------+ + + + | Date | Type | Department | Care Team | Description | +--------+---------+ + + + | 08/13/ | Office | Cardiology | Raghavendra Gilbert | Dizziness (Primary | | 2012 | Visit | Arrhythmia at [facility] | MD Sarai [address] | Dx) | | | | [address] | [place] | | | | | Mailcode: [facility] | [place], [place] | | | | | [facility] | [address] | | | | | and [place], | [phone] | | | | | [facility] | | | | | | Floor [place], [place] | | | | | | [address] | | | | | | [phone] | | | +--------+---------+ + + + [...] Director, Arrhythmia Service Division of Cardiovascular Medicine [facility] Appointments and Patients: [phone] Division Offices: [phone] Kiara Templeton RN [phone] (a good number to contact us) Marine Underwriter customer acquisition specialist (after business hours): [phone]. Arrhythmia Service: Raghavendra Gilbert MD, Director. [place] [...] has been in the emergency room in [place] several times with these, and is generally [...] and contro l the episodes, assuming they collar turner to be secondary to NMH. The patient asked about a tilt, but I do not think this would provide useful information in this case. I spent 40 minutes with the patient, over half of which was spent in counseling the patient regarding dizziness. Recommendations/Plan: Bloodwork today. Holter monitor. Increase salt and fluid intake. Follow up on mychart. Raghavendra Gilbert M.D. Director, Electrophysiology Results Engineersuperintendent drilling and production [facility] Cardiovascular [facility] [place] [address] documented in th is encounter Plan of [...] interpreted with caution. Test now performed at [facility]. New | | | method effective 08/05/13. Age-adjusted reference ranges are in use. | | + + + + + + + + | Performing | Address | City/State/Zipcode | Phone Number | | Organization | | | | + + + + + | [facility] | [address] | [place] [address] | | | SERVICES, CORE | [address] | | | + + + + + [facility] - COMPLETE METABOLIC SET (08/13/2013 2:25 [...] | | | LABORATORY | | | [place] | | | SERVICES, | | | [...] Interpretive Information: <60 mL/min/1.73 sq m | [facility], | | Chronic Kidney Disease <15 mL/min/1.73 sq m | [place] | | Kidney Failure Estimated GFR [...] | + + + + + | [facility] | [address] | [place] [address] | | | [facility], [facility] | | | | | HEALTH [...] | + + + + + | [facility] | [address] | [place] [address] | | | SERVICES, [place] | | | | | HEALTH [...] is a 48 hour Holter | | [facility] DEPT | | | DIAGNOSIS | monitor [...] GILBERT | | | | | | ([id number]) on 09/07/2013 | | | | | | 9:08:12 AM | | | | + + + + + + + + | Specimen | + + | | + + + + + | Narrative | Performed At | + + + | Please click | [facility] | | on view image for the detailed interpretation from [employer] results. | CARDIOLOGY | + + + + + | Procedure Note | + + | Interface, Cardiology Results - 09/07/2013 9:08 AM PST Please click on view image | | for the detailed interpretation from [employer] results. | + + + + + + + | Performing | Address | City/State/Zipcode | Phone Number | | Organization | | | | + + + + + | [facility] | [address] | [place], [place] | | | CARDIOLOGY | [address] | [address] | | + + + + + [...] view image for the detailed interpretation from [employer] results. | CARDIOLOGY | + + + + + | Procedure Note | + + | Interface, Cardiology Results - 08/13/2013 10:36 PM PST Please click on view image | | for the detailed interpretation from [employer] results. | + + + + + + + | Performing | Address | City/State/Zipcode | Phone Number | | Organization | | | | + + + + + | [facility] | [address] | [place], [place] | | | CARDIOLOGY | [address] | [address] | | + + + + + documented in this encounter Visit Diagnoses + + | Diagnosis | + + | Dizziness - Primary Dizziness and giddiness | + + documented in this encounter
--- OUTSIDE RECORDS SUMMARY | ~2019-07-06 | XMS | Encounter Summary ---
Demographics + + + | Address | [address] | | | [place] [address] | + + + | Home Phone | | + + + | Preferred Language | Unknown | + + + | Marital Status | Single | + + + | Rastafari Affiliation | LDS | + + + | Race | or | + + + | Ethnic Group | Not or | + + + Author + + + | Author | [facility] | + + + | Organization | [facility] | + + + | Address | Unknown | + + + | Phone | Unavailable | + + + Support + + +---------+ + | Name | Relationship | Address | Phone | + + +---------+ + | Андрей Kenney | ECON | Unknown | | + + +---------+ + Care Team Providers + +------+ + | Care Plant Maintenance Manager Name | Role | Phone | + [...] Ray | | | | | at [facility] | [facility] | | | | | [address] | [place] [address] | | | | | [facility] | | | | | | Mailcode: OP12[address] | | | | | | [facility] | | | | | | [place], | | | | | | [place] [address] | | | | | | [phone] | | | +--------+ + + + [...] view image for the detailed interpretation from [employer]. | CARDIOLOGY | + + + + + | Procedure Note | + + | Interface, Cardiology Results - 08/13/2013 10:36 PM PST Please click on view image | | for the detailed interpretation from [facility] results. | + + + + + + + | Performing | Address | City/State/Zipcode | Phone Number | | Organization | | | | + + + + + | [facility] | [address] | [place], [place] | | | CARDIOLOGY | [address] | [address] | | + + + + + documented in this encounter Visit Diagnoses Not on filedocumented in this encounter
--- OUTSIDE RECORDS SUMMARY | ~2019-07-06 | XMS | Clinical Summary ---
Demographics + + + | Address | [address] | | | [place] [address] | + + + | Home Phone | | + + + | Preferred Language | Unknown | + + + | Marital Status | Unknown | + + + | Rastafarian Affiliation | Unknown | + + + | Race | Unknown | + + + | Ethnic Group | Unknown | + + + Author + + + | Author | [facility] (Historical as of | | | 05-09-19) | + + + | Organization | [facility] (Historical as of | | | 05-09-19) | + + + | Address | Unknown | + + + | Phone | Unavailable | + + + Care Team Providers + +------+ + | Care Doorperson Name | Role | Phone | + [...] +------+-------+ + | MEDICARE | MEDICA | [id number] | | | [address] | | | RE | | | | [place] [address] | | | IP-OP | | | | | + +--------+ +------+-------+ + | MEDICAID | [place] | [id number] | | | [address] | | | | | | | [place] | | | [place]ICA | | | | [address] | | | [place] | | | [...] | 1970 | [phone] | [place] [address] | | | [place] | | | [address] | | + +--------+ +--------+ + +"
--- OUTSIDE RECORDS SUMMARY | ~2019-07-06 | XMS | Encounter Summary ---
Demographics + + + | Address | [address] | | | [place] [address] | + + + | Home Phone | | + + + | Preferred Language | Unknown | + + + | Marital Status | Single | + + + | Sikhism Affiliation | LDS | + + + | Race | or | + + + | Ethnic Group | Not or | + + + Author + + + | Author | [facility] | + + + | Organization | [facility] | + + + | Address | Unknown | + + + | Phone | Unavailable | + + + Support + + +---------+ + | Name | Relationship | Address | Phone | + + +---------+ + | Андрей Kenney | ECON | Unknown | | + + +---------+ + Care Team Providers + +------+ + | Care Pharmacy Messenger Name | Role | Phone | + +------+ + PCP | Unavailable | + +------+ + Encounter Details +--------+ + + + + | Date | Type | Department | Care Team | Description | +--------+ + + + + | 07/03/ | Abstract | Cardiology | Unknown . | | | 2012 | | Arrhythmia at [facility] | | | | | | [address] | | | | | | Mailcode: [address] | | | | | | [facility] | | | | | | and Healing, | | | | | | Building | | | | | | [place], [place] | | | | | | [address] | | | | | | [phone] | | | +--------+ + + + [...]
--- OUTSIDE RECORDS SUMMARY | ~2019-07-06 | XMS | Encounter Summary ---
Demographics + + + | Address | [address] | | | [place] [address] | + + + | Home Phone | | + + + | Preferred Language | Unknown | + + + | Marital Status | Single | + + + | Moravian Affiliation | LDS | + + + | Race | or | + + + | Ethnic Group | Not or | + + + Author + + + | Author | [facility] | + + + | Organization | [facility] | + + + | Address | Unknown | + + + | Phone | Unavailable | + + + Support + + +---------+ + | Name | Relationship | Address | Phone | + + +---------+ + | Андрей Kenney | ECON | Unknown | | + + +---------+ + Care Team Providers + +------+ + | Care Certified Registered Nurse Anesthetist Name | Role | Phone | + [...] Ray | | | | | at [facility] | [facility] | | | | | [address] | [place] [address] | | | | | [facility] | | | | | | Mailcode: [id number] Cory | | | | | | [facility] | | | | | | [place], | | | | | | [place] [address] | | | | | | [phone] | | | +--------+ + + + [...] is a 48 hour Holter | | [facility] DEPT | | | DIAGNOSIS [...] GILBERT | | | | | | ([id number]) on 09/07/2013 | | | | | | 9:08:12 AM | | | | + + + + + + + + | Specimen | + + | | + + + + + | Narrative | Performed At | + + + | Please click | [facility] OF | | on view image for the detailed interpretation from [employer] results. | CARDIOLOGY | + + + + + | Procedure Note | + + | Interface, Cardiology Results - 09/07/2013 9:08 AM PST Please click on view image | | for the detailed interpretation from [employer] results. | + + + + + + + | Performing | Address | City/State/Zipcode | Phone Number | | Organization | | | | + + + + + | [facility] | [address] | [place], [place] | | | CARDIOLOGY | [address] | [address] | | + + + + + documented in this encounter Visit Diagnoses Not on filedocumented in this encounter"
--- OUTSIDE RECORDS SUMMARY | ~2019-07-06 | XMS | Encounter Summary ---
Demographics + + + | Address | [address] | | | [place] [address] | + + + | Home Phone | | + + + | Preferred Language | Unknown | + + + | Marital Status | Single | + + + | Baptist Affiliation | LDS | + + + | Race | or | + + + | Ethnic Group | Not or | + + + Author + + + | Author | [facility] | + + + | Organization | [facility] | + + + | Address | Unknown | + + + | Phone | Unavailable | + + + Support + + +---------+ + | Name | Relationship | Address | Phone | + + +---------+ + | Андрей Kenney | ECON | Unknown | | + + +---------+ + Care Team Providers + +------+ + | Care Aerodynamicist Name | Role | Phone | + [...] [address] | | | | | | [place], [place] | | | | | | [address] | | | | | | [phone] | | | +--------+------+ + + + [...] influenced by a variety of environmental | [facility] | | influences, age, gender and ethnicity. The supplied reference limits | LABORATORY | | are based on published values utilizing a similar TSH assay, and | SERVICES, CORE | | should be interpreted with caution. Test now performed at [facility]. New | | | method effective 08/05/13. Age-adjusted reference ranges are in use. | | + + + + + + + + | Performing | Address | City/State/Zipcode | Phone Number | | Organization | | | | + + + + + | [facility] | [address] | [place] [address] | | | SERVICES, CORE | [address] | | | + + + + + [facility] - COMPLETE METABOLIC SET (08/13/2013 2:25 PM [...] LABORATORY | [address] | [place] [address] | | | [facility] [place] [facility] | | | | | HEALTH [...] LABORATORY | | | | | | [facility], | | | | | | CENTER FOR | | | | | | HEALTH + | | | | | | HEALING | | + +-------+ + + + | RED CELL | 4.26 | 4.00 - 5.20 | [facility] | | | COUNT | | M/cu mm | LABORATORY | | | | | | [facility], | | | | | | [place] [facility] | | | | | | [...] SERVICES, | | | | | | [place] [facility] | | | | | | [...] | | | SERVICES, | | | [facility] | | | HEALTH + | | | HEALING | + + + + + + + + | Performing | Address | City/State/Zipcode | Phone Number | | Organization | | | | + + + + + | [facility] | [address] | [place] [address] | | | SERVICES, [place] [facility] | | | | | HEALTH + HEALING | | | | + + + + + documented in this encounter Visit Diagnoses + + | Diagnosis | + + | Dizziness Dizziness and giddiness | + + documented in this encounter"
--- OUTSIDE RECORDS SUMMARY | ~2019-07-06 | XMS | Clinical Summary ---
Demographics + + + | Address | [address] | | | [place] [address] | + + + | Home Phone | | + + + | Preferred Language | Unknown | + + + | Marital Status | Single | + + + | Taoist Affiliation | LDS | + + + [...] Team Providers + +------+ + | Care Roll Mechanic Name | Role | Phone | + +------+ + PCP | Unavailable | + +------+ + Source Comments [facility] is fully live on both [facility] Ambulatory and [facility] InPatient.[facility] Allergies Not on File Medications + [...] PLUS | | 14-Pre | 6 | [id number] | id | | | OPEN | | sent | | [place] | | | | CARD | | | | [id number] | | + +--------+ +--------+ + +--------+ [...] | 1970 | [phone] | [place] [address] | | | [place] | | | 3 (Home) | | + +--------+ +--------+ + +
--- OUTSIDE RECORDS SUMMARY | ~2019-07-06 | XMS | Clinical Summary ---
Demographics + + + | Address | [address] | | | [place] [address] | + + + | Home Phone | | + + + | Preferred Language | Unknown | + + + | Marital Status | Unknown | + + + | Baptism Affiliation | Unknown | + + + | Race | Unknown | + + + | Ethnic Group | Unknown | + + + Author + + + | Author | [employer] (Historical as of | | | 05-09-19) | + + + | Organization | [facility] [employer] (Historical as of | | | 05-09-19) | + + + | Address | Unknown | + + + | Phone | Unavailable | + + + Care Team Providers + +------+ + | Care Paper Coating Supervisor Name | Role | Phone | + [...] +------+-------+ + | MEDICARE | MEDICA | [id number] | | | [address] | | | RE | | | | [place] [address] | | | IP-OP | | | | | + +--------+ +------+-------+ + | MEDICAID | [place] | [id number] | | | [address] | | | | | | | [place] | | | [place] | | | | [address] | | | ID | | | [...] | 1970 | [phone] | [place] [address] | | | [place] | | | [phone] | | + +--------+ +--------+ + +"
--- OUTSIDE RECORDS SUMMARY | ~2019-07-06 | XMS | Encounter Summary ---
Demographics + + + | Address | [address] | | | [place] [address] | + + + | Home Phone | | + + + | Preferred Language | Unknown | + + + | Marital Status | Single | + + + | Orthodoxy Affiliation | LDS | + + + [...] Team Providers + +------+ + | Care Building Rental Superintendent Name | Role | Phone | + [...] Ray | | | | | at [facility] | [facility] | | | | | [address] | [place] [address] | | | | | [facility] | | | | | | Mailcode: [id number] [place] | | | | | | [facility] | | | | | | [place], | | | | | | [place] [address] | | | | | | [phone] | | | +--------+ + + + [...] view image for the detailed interpretation from [employer]. | CARDIOLOGY | + + + + + | Procedure Note | + + | Interface, Cardiology Results - 08/13/2013 10:36 PM PST Please click on view image | | for the detailed interpretation from [employer] results. | + + + + + + + | Performing | Address | City/State/Zipcode | Phone Number | | Organization | | | | + + + + + | [facility] | [address] | [place], [place] | | | CARDIOLOGY | [address] | [address] | | + + + + + documented in this encounter Visit Diagnoses Not on filedocumented in this encounter
--- OUTSIDE RECORDS SUMMARY | ~2019-07-06 | XMS | Encounter Summary ---
Demographics + + + | Address | [address] | | | [place] [address] | + + + | Home Phone [...] Team Providers + +------+ + | Care Ludlow Machine Operator Name | Role | Phone [...] [address] | | | | | | [place], [place] | | | | | | [address] | | | | | | [phone] | | | +--------+------+ + + + [...] influenced by a variety of environmental | [facility] | | influences, age, gender and ethnicity. The supplied reference limits | LABORATORY | | are based on published values utilizing a similar TSH assay, and | SERVICES, CORE | | should be interpreted with caution. Test now performed at [facility]. New | | | method effective 08/05/13. Age-adjusted reference ranges are in use. | | + + + + + + + + | Performing | Address | City/State/Zipcode | Phone Number | | Organization | | | | + + + + + | [facility] | [address] | [place] [address] | | | SERVICES, CORE | [address] | | | + + + + + [facility] - COMPLETE METABOLIC SET (08/13/2013 2:25 [...] | | | LABORATORY | | | [place] | | | SERVICES, | | | [...] LABORATORY | [address] | [place] [address] | | | [facility] | | | | | HEALTH [...] LABORATORY | | | | | | [facility], | | | | | | CENTER FOR | | | | | | HEALTH + | | | | | | HEALING | | + +-------+ + + + | RED CELL | 4.26 | 4.00 - 5.20 | [facility] | | | COUNT | | M/cu mm | LABORATORY | | | | | | [facility] | | | | | | [facility] | | | | | | [...] SERVICES, | | | | | | [facility] | | | | | | [...] | | | SERVICES, | | | [facility] | | | HEALTH + | | | HEALING | + + + + + + + + | Performing | Address | City/State/Zipcode | Phone Number | | Organization | | | | + + + + + | [facility] | [address] | [place] [address] | | | SERVICES, [facility] | | | | | HEALTH + HEALING | | | | + + + + + documented in this encounter Visit Diagnoses + + | Diagnosis | + + | Dizziness Dizziness and giddiness | + + documented in this encounter"
--- OUTSIDE RECORDS SUMMARY | ~2019-07-06 | XMS | Encounter Summary ---
Demographics + + + | Address | [address] | | | [place] [address] | + + + | Home Phone [...] Team Providers + +------+ + | Care Budget Engineer Name | Role | Phone | + +------+ + PCP | Unavailable | + +------+ + Encounter Details +--------+ + + + + | Date | Type | Department | Care Team | Description | +--------+ + + + + | 07/03/ | Abstract | Cardiology | Unknown . | | | 2012 | | Arrhythmia at [facility] | | | | | | [address] | | | | | | Mailcode: [address] | | | | | | [facility] | | | | | | and Healing, | | | | | | Building | | | | | | [place], [place] | | | | | | [address] | | | | | | [phone] | | | +--------+ + + + [...]
--- OUTSIDE RECORDS SUMMARY | ~2019-07-06 | XMS | Clinical Summary ---
Demographics + + + | Address | [address] | | | [place] [address] | + + + | Home Phone | | + + + | Preferred Language | Unknown | + + + | Marital Status | Single | + + + | Latter Day Affiliation | LDS | + + + [...] Team Providers + +------+ + | Care Reducing System Operator Name | Role | Phone | + +------+ + PCP | Unavailable | + +------+ + Source Comments [facility] is fully live on both [facility] Ambulatory and [facility] InPatient.[facility] Allergies Not on File Medications [...] PLUS | | 14-Pre | 6 | [id number] | id | | | OPEN | | sent | | [place] | | | | CARD | | | | [id number] | | + +--------+ +--------+ + +--------+ [...] | 1970 | [phone] | [place] [address] | | | [place] | | | 3 (Home) | | + +--------+ +--------+ + +
--- OUTSIDE RECORDS SUMMARY | ~2019-07-06 | XMS | Clinical Summary ---
Demographics + + + | Address | [address] | | | [place] [address] | + + + | Home Phone | | + + + | Preferred Language | Unknown | + + + | Marital Status | Single | + + + | Orthodox Affiliation | Unknown | + + + | Race | Unknown | + + + | Ethnic Group | Unknown | + + + Author + + + | Author | [facility] | | | and [place] [...] Team Providers + +------+ + | Care Asphalt Engineer Name | Role | Phone | [...] [place] | | | | | | [address] | | | | | | | [...] +--------+ +---------+--------+ | MEDICARE | MEDICA | [id number] | | [phone] | | Medica | | | RE | | 019-Pr | 5 | | re | | | PART A | | esent | | | | | | AND B | | | | | | + +--------+ +--------+ +---------+--------+ | [facility] | IHS | [id number] | | | | Indemn | | [...] | | al/Vladimir | | 1970 | [phone] | [place] [address] | | | [place] | | | 6 (Home) | | + +--------+ +--------+ + + Advance Directives Patient has advance care planning documents on file. For more information, please contact:[facility] [place] [address]"
[~2019-07-06 09:39] MED LIST changes: +KETOROLAC TROME10 MG PO; +NUCYNTA50 MG PO
--- OUTSIDE RECORDS SUMMARY | 2019-07-06 09:42 | XMS ---
PreManage Notification: AZAM TIERNEY Security Casualty Insurance Claim Adjuster Events No recent Security Events currently on file CRITERIA MET - [facility] - [facility] - 2 Visits in 30 Days CARE PROVIDERS LILY BRITO [facility] 06/16/2019-Current PHONE: Unknown Lily Brito Primary [facility] PHONE: Unknown DOCTOR SALAS Primary [facility] Current PHONE: Unknown RICH VERA Primary [facility] PHONE: Unknown LILY BRITO [facility] Current PHONE: Unknown LILY BRITO Primary [facility] 09/23/2013-Current PHONE: Unknown Alesha has no Care Guidelines for this patient. EFlorinda VISIT COUNT (12 MO.) 5 TENA Shar[place] TOTAL 5 NOTE: Visits indicate total known visits. ED/UCC VISIT TRACKING (12 MO.) 07/06/2019 09:40 [place] TYPE: Emergency COMPLAINT: - SHOULDER PAIN, HEAD ACHE 06/24/2019 21:36 [place] TYPE: Emergency COMPLAINT: - PAIN DIAGNOSES: - Other long wall shear operator (current) drug therapy - Sacrococcygeal disorders, not elsewhere classified - Contusion of lower back and pelvis, initial encounter - Fall (on) (from) other stairs and steps, initial encounter - Allergy status to narcotic agent status - Allergy status to other antibiotic agents status - Nicotine dependence, unspecified, uncomplicated 06/12/2019 14:21 [place] TYPE: Emergency COMPLAINT: - VOMITING DIAGNOSES: - Nicotine dependence, unspecified, uncomplicated - Allergy status to other antibiotic agents status - Other chcf (current) drug therapy - Syncope and collapse - Contusion of scalp, initial encounter - Fall on same level, unspecified, initial encounter 06/12/2019 11:44 [place] TYPE: Emergency COMPLAINT: - FALL, BACK PAIN DIAGNOSES: - Other chcf (current) drug therapy - Low back pain - Contusion of lower back and pelvis, initial encounter - Fall (on) (from) other stairs and steps, initial encounter - Allergy status to other antibiotic agents status 05/09/2019 17:37 [place] TYPE: Emergency COMPLAINT: - CHEST PAIN DIAGNOSES: - Other chcf (current) drug therapy - Nicotine dependence, unspecified, uncomplicated - Chest pain, unspecified - Allergy status to other antibiotic agents status INPATIENT VISIT TRACKING (12 MO.) No inpatient visits to display in this time frame [email or web address]
[2019-07-06] MEDS ORDERED: CIFEREX 3,7751 EACH PO (10:03)
[2019-07-06] MEDS ORDERED: MELATONIN3 M3 PO (10:04)
[2019-07-06] MEDS ORDERED: MAGNESIUM100 MG PO (10:05)
--- NOTE | 2019-07-06 15:41 | EKG ---
[facility] [address] [place] [address] Signed Normal sinus rhythm Septal infarct (cited on or before 09-MAY-2019) Abnormal ECG When compared with ECG of 09-MAY-2019 17:42, No significant change was found Confirmed by ROSA BAGLEY MD ([id number]) on 07/06/2019 3:40:46 PM Electronically Signed By: ROSA BAGLEY MD 07/06/19 1541 PATIENT NAME: AZAM TIERNEY Electrocardiogram DATE OF : 72 PHYSICIAN: ROSA BAGLEY MD REPORT #: [id number] REPORT IS CONFIDENTIAL AND NOT TO BE RELEASED WITHOUT AUTHORIZATION
== END 2019-07-06 12:33 | disposition home or self-care (01) ==
LOC: ED 09:39
DX: F41.9 Anxiety disorder, unspecified (principal); D64.9 Anemia, unspecified; M25.512 Pain in left shoulder; G43.909 Migraine, unspecified, not intractable, without status migrainosus; F17.200 Nicotine dependence, unspecified, uncomplicated; Z88.1 Allergy status to other antibiotic agents; Z88.5 Allergy status to narcotic agent; Z79.899 Other long term (current) drug therapy
CPT/HCPCS: 71045; 80053; 84484; 84703; 85025; 85379; 93005; 93010; 96374; 96375; 99284-25; 99406; J1200; J1885; J2765

== ENCOUNTER 2019-09-27 05:01 | Emergency (ER) | payer MEDICARE, OTHER ==
[~2019-09-27] VITALS: Ht 172.7 cm; Wt 80.7 kg
--- OUTSIDE RECORDS SUMMARY | ~2019-09-27 | XMS | Encounter Summary ---
Demographics + + + | Address | [address] | | | [place] [address] | + + + | Home Phone | | + + + | Preferred Language | Unknown | + + + | Marital Status | Single | + + + | Baptism Affiliation | Unknown | + + + | Race | Unknown | + + + | Ethnic Group | Unknown | + + + Author + + + | Author | [facility] | | | and [place] | + + + | Organization | [facility] | | | and [place] | + + + | Address | Unknown | + + + | Phone | Unavailable | + + + Support + + +---------+ + | Name | Relationship | Address | Phone | + + +---------+ + | Dion Omar | ECON | Unknown | | + + +---------+ + Care Team Providers + +------+ + | Care Medical Lead Name | Role | Phone | + +------+ + PCP | Unavailable | + +------+ + Encounter Details +--------+ + + + + | Date | Type | Department | Care Team | Description | +--------+ + + + + | / | [facility] | [facility] | Feliberto Hollis, | | | 1999 | Encounter | MED CTR GENERIC OP | [address] | | | | | CONV DEPT [address] | [place], [place] | | | | | [place], | [address] | | | | | [place] [address] | | | | | | [phone] | | | +--------+ + + + + Social History + +-------+ +--------+------+ | Tobacco [...] recent travel history available. | + + documented as of this encounter Plan of Treatment +--------+---------+ + + + | Date | Type | Specialty | Care Team | Description | +--------+---------+ + + + | 10/26/ | Office | Physical Medicine | Gus Loya, | | | 2020 | Visit | and Rehabilitation | [facility] [address] | | | | | | [address] [place] | | | | | | [place] [address] | | | | | | [phone] | | | | | | | | +--------+---------+ + + + | 12/09/ | Office | Sleep Medicine | Adri Metz MD | | | 2020 | Visit | | [address] | | | | | | [place] | | | | | | [address] | | | | | | | | +--------+---------+ + + + documented as of this encounter Visit Diagnoses Not on filedocumented in this encounter"
--- OUTSIDE RECORDS SUMMARY | ~2019-09-27 | XMS | Encounter Summary ---
Demographics + + + | Address | [address] | | | [place] [address] | + + + | Home Phone | | + + + | Preferred Language | Unknown | + + + | Marital Status | Single | + + + | Druze Affiliation | LDS | + + + | Race | or | + + + | Ethnic Group | Not or | + + + Author + + + | Author | [facility] | + + + | Organization | [facility] | + + + | Address | Unknown | + + + | Phone | Unavailable | + + + Support + + +---------+ + | Name | Relationship | Address | Phone | + + +---------+ + | Андрей Kenney | ECON | Unknown | | + + +---------+ + Care Team Providers + +------+ + | Care Gasket Winder Name | Role | Phone | + +------+ + PCP | Unavailable | + +------+ + Encounter Details +--------+ + + + + | Date | Type | Department | Care Team | Description | +--------+ + + + + | 07/03/ | Abstract | Cardiology | Unknown . | | | 2012 | | Arrhythmia at [facility] | | | | | | [address] | | | | | | Mailcode: [address] | | | | | | [facility] | | | | | | and Healing, | | | | | | Building | | | | | | [place], [place] | | | | | | [address] | | | | | | [phone] | | | +--------+ + + + [...] as of this encounter Plan of Treatment Not on filedocumented as of this encounter Visit Diagnoses Not on filedocumented in this encounter"
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
--- OUTSIDE RECORDS SUMMARY | ~2019-09-27 | XMS | Encounter Summary ---
Demographics + + + | Address | [address] | | | [place] [address] | + + + | Home Phone | | + + + | Preferred Language | Unknown | + + + | Marital Status | Single | + + + | Evangelical Affiliation | Unknown | + + + | Race | Unknown | + + + | Ethnic Group | Unknown | + + + Author + + + | Author | [facility] | | | and [place] | + + + | Organization | [facility] | | | and [...] Team Providers + +------+ + | Care Delicatessen Goods Stock Clerk Name | Role | Phone | + +------+ + PCP | Unavailable | + +------+ + Encounter Details +--------+ + + + + | Date | Type | Department | Care Team | Description | +--------+ + + + + | 12/25/ | Hospital | [facility] | Feliberto Hollis, | | | 1999 | Encounter | MED CTR GENERIC OP | [address] [facility] [facility] | | | | | CONV DEPT [address] | [place], [place] | | | | | [place], | [address] | | | | | [place] [address] | | | | | | [phone] | | | +--------+ + + + [...] | | | | | [place] [address] | | | | | | [phone] | | | | | | | [...]
--- OUTSIDE RECORDS SUMMARY | ~2019-09-27 | XMS | Encounter Summary ---
Demographics + + + | Address | [address] | | | [place] [address] | + + + | Home Phone | | + + + | Preferred Language | Unknown | + + + | Marital Status | Single | + + + | Hindu Affiliation | Unknown | + + + | Race | Unknown | + + + | Ethnic Group | Unknown | + + + Author + + + | Author | [facility] | | | and [place] | + + + | Organization | [facility] | | | [...] Team Providers + +------+ + | Care Obstetrics Gynecology Physician Name | Role | Phone | + +------+ + | Panfilo Romo | PCP | | + +------+ + Encounter Details +--------+ + + + + | Date | Type | Department | Care Team | Description | +--------+ + + + + | 08/29/ | Imaging | [facility] | Provider, | | | 2019 | Exam | MED CTR EXTERNAL | MD [facility] [address] | | | | | IMAGING | [address] | | | | | [phone] | [place] [address] | | +--------+ + + + + [...] | and Rehabilitation | [facility] [address] | | | | | | [address] | | | | | | [place] [address] | | | | | | [phone] | | | | | | | | +--------+---------+ + + + | 12/09/ | Office | Sleep Medicine | Adri Metz MD | | | 2019 | Visit | | [address] | | | | | | [place] | | | | | | [address] | | | | | | | | +--------+---------+ + + + documented as of this encounter Procedures + +--------+ + + + | Procedure Name | Priori | Date/Time | Associated Diagnosis | Comments | | | ty | | | | + +--------+ + + + | XR HIP LEFT 2-3 | Routin | 06/12/2019 | | Results for this | | VIEWS | e | 12:00 AM | | procedure are in the | | | | PDT | | results section. | + +--------+ + + + documented in this encounter Results XR Hip Left 2-3 Views (06/12/2019 12:00 AM PDT) + + | Specimen | + + | | + + + + + | Narrative | Performed At | + + + | External films for comparison only | [facility] | | | | | No results will be in the chart. | | + + + + +---------+ + + | Performing | Address | City/State/Zipcode | Phone Number | | Organization | | | | + +---------+ + + | [facility] | | | | + +---------+ + + documented in this encounter Visit Diagnoses Not on filedocumented in this encounter"
--- OUTSIDE RECORDS SUMMARY | ~2019-09-27 | XMS | Encounter Summary ---
Demographics + + + | Address | [address] | | | [place] [address] | + + + | Home Phone | | + + + | Preferred Language | Unknown | + + + | Marital Status | Single | + + + | Druze Affiliation | Unknown | + + + | Race | Unknown | + + + | Ethnic Group | Unknown | + + + Author + + + | Author | [facility] | | | and [place] | + + + | Organization | [facility] | | | [...] Team Providers + +------+ + | Care Steam Box Tender Name | Role | Phone | + [...] Domenic GARCIA | | | | | [phone] | [place] [address] | | +--------+ + + + + [...] | | | | | [place] [address] | | | | | | [phone] | | | | | | | | +--------+---------+ + + + | 12/09/ | Office | Sleep Medicine | Adri Metz MD | | | 2019 | Visit | | [address] | | | | | | [place] | | | | | | [address] | | | | | | | | +--------+---------+ + + + documented as of this encounter Procedures + +--------+ + + + | Procedure Name | Priori | Date/Time | Associated Diagnosis | Comments | | | ty | | | | + +--------+ + + + | XR LUMBAR SPINE 2 OR | Routin | 06/12/2019 | | Results for this | | 3 VW | e | 12:05 AM | | procedure are in the | | | | PDT | | results section. | + +--------+ + + + documented in this encounter Results XR Lumbar Spine 2 or 3 Vw (06/12/2019 12:05 AM PDT) + + | Specimen | [...]
--- OUTSIDE RECORDS SUMMARY | ~2019-09-27 | XMS | Clinical Summary ---
Demographics + + + | Address | [address] | | | [place] [address] | + + + | Home Phone | | + + + | Preferred Language | Unknown | + + + | Marital Status | Single | + + + | Scientologist Affiliation | Unknown | + + + | Race | Unknown | + + + | Ethnic Group | Unknown | + + + Author + + + | Author | [facility] | | | and [place] | + + + | Organization | [facility] | | | and [place] | + + + | Address | Unknown | + + + | Phone | Unavailable | + + + Support + + +---------+ + | Name | Relationship | Address | Phone | + + +---------+ + | [facility] | ECON | Unknown | | + + +---------+ + Care Team Providers + +------+ + | Care Lube Technician Name | Role | Phone | + +------+ + | Kwadwo Brito | PCP | | | MD | | | + +------+ + Allergies Not on File Medications Not on file Active Problems Not on file Encounters +--------+ + + + + | Date | Type | Specialty | Care Team | Description | +--------+ + + + + | 08/29/ | Imaging | Radiology | Provider, | | | 2018 | Exam | | MD Cosmo | | +--------+ + + + + from Last 3 Months Social History + +-------+ +--------+------+ | Tobacco [...] Medicine | Gus Loya, | | | 2019 | Visit | and Rehabilitation | [facility] [address] | | | | | | [address] | | | | | | [place] [address] | | | | | | [phone] | | | | | | | | +--------+---------+ + + + | 12/09/ | Office | Sleep Medicine | Adri Metz MD | | | 2020 | Visit | | [address] | | | | | | [place] | | | | | | [address] | | | | | | | [...] + + | Vaccine: Influenza | | 10/06/2016, 07/25/2012, | | | (#1) | 9 | 07/18/2006 | | + + + + + | Adult Annual | | | | | Wellness Visit | 9 | | | + + + + + | Vaccine: | | 01/08/2018, 01/26/2014, | | | Dtap/Tdap/Td (4 - | 8 | 07/18/2006 | | | Td) | | | | + + + + + Procedures + +--------+ + + + | Procedure Name | Priori | Date/Time | Associated Diagnosis | Comments | | | ty | | | | + +--------+ + + + | MRI LUMBAR SPINE WO | Routin | 08/12/2019 | | Results for this | | CONTRAST | e | 12:00 AM | | procedure are in the | | | | PST | | results section. | + +--------+ + + + from Last 3 Months Results MRI Lumbar Spine wo Contrast (08/12/2019 12:00 AM PST) + + | Specimen | + + [...] | | | + +---------+ + + from Last 3 Months Insurance + +--------+ +--------+ +---------+--------+ | Payer | Benefi | Subscriber | Effect | Phone | Address | Type | | | t Plan | ID | gaudencio | | | | | | / | | Dates | | | | | | Group | | | | | | + +--------+ +--------+ +---------+--------+ | [employer] | CCMSI | [id number] | | [phone] | | Indemn | | | WC | | 019-Pr | 8 | | ity | | | | | esent | | | | + +--------+ +--------+ +---------+--------+ | MEDICARE | MEDICA | [id number] | | [phone] | | Medica | | | RE | | 019-Pr | 5 | | re | | | PART A | | esent | | | | | | AND B | | | | | | + +--------+ +--------+ +---------+--------+ | [facility] | IHS | [id number] | | | | Indemn | | [...] Self | [birth year] | [address] | | | al/Fam | | 1970 | [phone] | [place] [address] | | | angela | | | 6 (Home) | | + +--------+ +--------+ + + | Sherrie Jewell | Worker | Self | [birth year] | | [address] | | | s Comp | | 1969 | [phone] | [address] [place] , | | | | | | 3 (Home) | [place] [address] | + +--------+ +--------+ + + Advance Directives + + + + + | Type | Date Recorded | Patient | Explanation | | | | Rn Telephonic | | + + + + + | Power of | | | | | Drafting Layout Worker | | | | + + + + + | Advance | | | | | Directive | | | | + + + + +"
--- OUTSIDE RECORDS SUMMARY | ~2019-09-27 | XMS | Encounter Summary ---
Demographics + + + | Address | [address] | | | [place] [address] | + + + | Home Phone | | + + + | Preferred Language | Unknown | + + + | Marital Status | Single | + + + | Mormon Affiliation | Unknown | + + + | Race | Unknown | + + + | Ethnic Group | Unknown | + + + Author + + + | Author | [facility] | | | and [place] | + + + | Organization | [facility] | | [...] Team Providers + +------+ + | Care Coat Cutter Name | Role | Phone | + [...] Domenic GARCIA | | | | | [phone] | [place] [address] | | +--------+ + + + + [...] | | | | | [place] [address] | | | | | | [phone] | | | | | | | | +--------+---------+ + + + | 12/09/ | Office | Sleep Medicine | Adri Metz MD | | | 2019 | Visit | | [address] | | | | | | [place] | | | | | | [address] | | | | | | | [...] + + documented in this encounter Results MRI Lumbar Spine wo Contrast (08/12/2019 [...]
--- OUTSIDE RECORDS SUMMARY | ~2019-09-27 | XMS | Encounter Summary ---
Demographics + + + | Address | [address] | | | [place] [address] | + + + | Home Phone | | + + + | Preferred Language | Unknown | + + + | Marital Status | Single | + + + | Confucianism Affiliation | Unknown | + + + | Race | Unknown | + + + | Ethnic Group | Unknown | + + + Author + + + | Author | [facility] | | | and [place] | + + + | Organization | [facility] | | | and [...] Team Providers + +------+ + | Care District Attorney Name | Role | Phone | + [...] Domenic GARCIA | | | | | [phone] | [place] [address] | | +--------+ + + + + [...] | | | | | [place] [address] | | | | | | [phone] | | | | | | | | +--------+---------+ + + + | 12/09/ | Office | Sleep Medicine | Adri Metz MD | | | 2019 | Visit | | [address] | | | | | | [place] | | | | | | [address] | | | | | | | [...]
--- OUTSIDE RECORDS SUMMARY | ~2019-09-27 | XMS | Clinical Summary ---
Demographics + + + | Address | [address] | | | [place] [address] | + + + | Home Phone | | + + + | Preferred Language | Unknown | + + + | Marital Status | Single | + + + | Evangelical Affiliation | LDS | + + + [...] Team Providers + +------+ + | Care Coil Placer Name | Role | Phone | + +------+ + PCP | Unavailable | + +------+ + Source Comments [facility] is fully live on both [facility] Ambulatory and [facility] InPatient.[facility] Allergies Not on File Medications + + [...] PLUS | | 14-Pre | 6 | [id number] | id | | | OPEN | | sent | | [place] | | | | CARD | | | | [phone] | | + +--------+ +--------+ + +--------+ [...] | 1970 | [phone] | [place] [address] | | | [place] | | | 3 (Home) | | + +--------+ +--------+ + +
--- OUTSIDE RECORDS SUMMARY | ~2019-09-27 | XMS | Clinical Summary ---
Demographics + + + | Address | [address] | | | [place] [address] | + + + | Home Phone | | + + + | Preferred Language | Unknown | + + + | Marital Status | Single | + + + | Episcopalian Affiliation | LDS | + + + [...] Team Providers + +------+ + | Care Behavioral Services Tech Name | Role | Phone | + +------+ + PCP | Unavailable | + +------+ + Source Comments [place] is fully live on both [facility] Ambulatory and [facility] InPatient.[facility] Allergies Not on File Medications + + [...] PLUS | | 14-Pre | 6 | [id number] | id | | | OPEN | | sent | | [place] | | | | CARD | | | | [address] | | + +--------+ +--------+ + +--------+ [...] | 1970 | [phone] | [place] [address] | | | [place] | | | 3 (Home) | | + +--------+ +--------+ + +
--- OUTSIDE RECORDS SUMMARY | ~2019-09-27 | XMS | Encounter Summary ---
Demographics + + + | Address | [address] | | | [place] [address] | + + + | Home Phone | | + + + | Preferred Language | Unknown | + + + | Marital Status | Single | + + + | Methodist Affiliation | LDS | + + + | Race | or | + + + | Ethnic Group | Not or | + + + Author + + + | Author | [facility] | + + + | Organization | [facility] | + + + | Address | Unknown | + + + | Phone | Unavailable | + + + Support + + +---------+ + | Name | Relationship | Address | Phone | + + +---------+ + | Андрей Kenney | ECON | Unknown | | + + +---------+ + Care Team Providers + +------+ + | Care Foam Dispenser Name | Role | Phone | + [...] Ray | | | | | at [facility] | [facility] | | | | | [address] | [place] [address] | | | | | Loop Mailcode: | | | | | | OP12B [facility] | | | | | | [facility] | | | | | | [place], [place] | | | | | | [address] | | | | | | [phone] | | | +--------+ + + + [...] is a 48 hour Holter | | [facility] DEPT | | | DIAGNOSIS | [...] [place] | | | | | | ([id number]) on 09/07/2013 | | | | | | 9:08:12 AM | | | | + + + + + + + + | Specimen | + + | | + + + + + | Narrative | Performed At | + + + | Please click | [facility] | | on view image for the detailed interpretation from [employer] results. | CARDIOLOGY | + + + + + | Procedure Note | + + | Interface, Cardiology Results - 09/07/2013 9:08 AM PST Please click on view image | | for the detailed interpretation from [employer] results. | + + + + + + + | Performing | Address | City/State/Zipcode | Phone Number | | Organization | | | | + + + + + | [facility] | [address] | [place], [place] | | | CARDIOLOGY | [address] | [address] | | + + + + + documented in this encounter Visit Diagnoses Not on filedocumented in this encounter"
--- OUTSIDE RECORDS SUMMARY | ~2019-09-27 | XMS | Encounter Summary ---
Demographics + + + | Address | [address] | | | [place] [address] | + + + | Home Phone [...] Author + + + | Author | [facility] | + + + | Organization | [facility] | + + + | Address | Unknown | + + + | Phone | Unavailable | + + + Support + + +---------+ + | Name | Relationship | Address | Phone | + + +---------+ + | Андрей Kenney | ECON | Unknown | | + + +---------+ + Care Team Providers + +------+ + | Care Lead Generator Name | Role | Phone | + [...] [address] | | | | | | [place], [place] | | | | | | [address] | | | | | | [phone] | | | +--------+------+ + + + [...] influenced by a variety of environmental | [facility] | | influences, age, gender and ethnicity. The supplied reference limits | LABORATORY | | are based on published values utilizing a similar TSH assay, and | SERVICES, CORE | | should be interpreted with caution. Test now performed at [facility]. New | | | method effective 08/05/13. Age-adjusted reference ranges are in use. | | + + + + + + + + | Performing | Address | City/State/Zipcode | Phone Number | | Organization | | | | + + + + + | [facility] | [address] [facility] [address] | [place] [address] | | | SERVICES, CORE | [address] | | | + + + + + [facility] - COMPLETE METABOLIC SET (08/13/2013 2:25 PM [...] | | | LABORATORY | | | [place] | | | SERVICES, | | | [...] Interpretive Information: <60 mL/min/1.73 sq m | SERVICES, | | Chronic Kidney Disease <15 mL/min/1.73 sq m | [facility] | | Kidney Failure Estimated GFR [...] LABORATORY | [address] | [place] [address] | | | [facility] | | | | | HEALTH [...] LABORATORY | | | | | | [facility] | | | | | | [facility] | | | | | | HEALTH + | | | | | | HEALING | | + +-------+ + + + | RED CELL | 4.26 | 4.00 - 5.20 | [facility] | | | COUNT | | M/cu mm | LABORATORY | | | | | | [facility] | | | | | | [facility] | | | | | | [...] SERVICES, | | | | | | [facility] | | | | | | [...] | | | SERVICES, | | | [facility] | | | HEALTH + | | | HEALING | + + + + + + + + | Performing | Address | City/State/Zipcode | Phone Number | | Organization | | | | + + + + + | [facility] | [address] | [place] [address] | | | SERVICES, [facility] | | | | | HEALTH + HEALING | | | | + + + + + documented in this encounter Visit Diagnoses + + | Diagnosis | + + | Dizziness Dizziness and giddiness | + + documented in this encounter"
--- OUTSIDE RECORDS SUMMARY | ~2019-09-27 | XMS | Encounter Summary ---
Demographics + + + | Address | [address] | | | [place] [address] | + + + | Home Phone | | + + + | Preferred Language | Unknown | + + + | Marital Status | Single | + + + | Congregational Affiliation | Unknown | + + + | Race | Unknown | + + + | Ethnic Group | Unknown | + + + Author + + + | Author | [facility] | | | and [place] | + + + | Organization | [facility] | | | and [...] Team Providers + +------+ + | Care Fire Fighter Airport Name | Role | Phone | + [...] Domenic GARCIA | | | | | [phone] | [place] [address] | | +--------+ + + + + [...] | | | | | [place] [address] | | | | | | [phone] | | | | | | | | +--------+---------+ + + + | 12/09/ | Office | Sleep Medicine | Adri Metz MD | | | 2019 | Visit | | [address] | | | | | | [place] | | | | | | [address] | | | | | | | [...]
--- OUTSIDE RECORDS SUMMARY | ~2019-09-27 | XMS | Clinical Summary ---
Demographics + + + | Address | [address] | | | [place] [address] | + + + | Home Phone | | + + + | Preferred Language | Unknown | + + + | Marital Status | Unknown | + + + | Islam Affiliation | Unknown | + + + | Race | Unknown | + + + | Ethnic Group | Unknown | + + + Author + + + | Author | [employer] [facility] (Historical as of | | | 05-09-19) | + + + | Organization | [facility] (Historical as of | | | 05-09-19) | + + + | Address | Unknown | + + + | Phone | Unavailable | + + + Care Team Providers + +------+ + | Care Physician General Practice Name | Role | Phone | + [...] +------+-------+ + | MEDICARE | MEDICA | [id number] | | | [address] | | | RE | | | | [place] [address] | | | IP-OP | | | | | + +--------+ +------+-------+ + | MEDICAID | [place] | [id number] | | | [address] | | | | | | | [place] | | | MEDICA | | | | [address] | | | ID | | | [...] | 1970 | [phone] | [place] [address] | | | [place] | | | [address] | | + +--------+ +--------+ + +"
--- OUTSIDE RECORDS SUMMARY | ~2019-09-27 | XMS | Encounter Summary ---
Demographics + + + | Address | [address] | | | [place] [address] | + + + | Home Phone | | + + + | Preferred Language | Unknown | + + + | Marital Status | Single | + + + | Catholic Affiliation | LDS | + + + | Race | or | + + + | Ethnic Group | Not or | + + + Author + + + | Author | [facility] | + + + | Organization | [facility] | + + + | Address | Unknown | + + + | Phone | Unavailable | + + + Support + + +---------+ + | Name | Relationship | Address | Phone | + + +---------+ + | Андрей Kenney | ECON | Unknown | | + + +---------+ + Care Team Providers + +------+ + | Care Mantel Craftsman Name | Role | Phone | + [...] Ray | | | | | at [facility] | [facility] | | | | | [address] | [place] [address] | | | | | Loop Mailcode: | | | | | | [address]12[address] [facility] | | | | | | [facility] | | | | | | [place], [place] | | | | | | [address] | | | | | | [phone] | | | +--------+ + + + [...] view image for the detailed interpretation from [employer]. | CARDIOLOGY | + + + + + | Procedure Note | + + | Interface, Cardiology Results - 08/13/2013 10:36 PM PST Please click on view image | | for the detailed interpretation from [employer] results. | + + + + + + + | Performing | Address | City/State/Zipcode | Phone Number | | Organization | | | | + + + + + | [facility] | [address] | [place], [place] | | | CARDIOLOGY | [address] | [address] | | + + + + + documented in this encounter Visit Diagnoses Not on filedocumented in this encounter
--- OUTSIDE RECORDS SUMMARY | ~2019-09-27 | XMS | Encounter Summary ---
Demographics + + + | Address | [address] | | | [place] [address] | + + + | Home Phone | | + + + | Preferred Language | Unknown | + + + | Marital Status | Single | + + + | Taoism Affiliation | LDS | + + + | Race | or | + + + | Ethnic Group | Not or | + + + Author + + + | Author | [facility] | + + + | Organization | [facility] | + + + | Address | Unknown | + + + | Phone | Unavailable | + + + Support + + +---------+ + | Name | Relationship | Address | Phone | + + +---------+ + | Андрей Kenney | ECON | Unknown | | + + +---------+ + Care Team Providers + +------+ + | Care Dry Press Operator Helper Name | Role | Phone | + [...] | | CONSULT TO | [place] | [facility] | | | | | CARDIOLOGY | [address] | [address] | | | | | | MEDICINE | [place], [place] | | | | | | [address] | [address] | | | | | | [address] | Phone: | | | | | | [place], | [phone] | | | | | | [place] [address] | Fax: | | | | | | Phone: | [phone] | | | | | | [phone] | | | | | | | Fax: | | | | | | | [phone] | | +--------+--------+ + + + + Encounter Details +--------+---------+ + + + | Date | Type | Department | Care Team | Description | +--------+---------+ + + + | 08/13/ | Office | Cardiology | Raghavendra Gilbert | Dizziness (Primary | | 2012 | Visit | Arrhythmia at [facility] | MD Sarai [address] | Dx) | | | | [address] | [place] | | | | | Mailcode: [facility] | [place], [place] | | | | | [facility] | [address] | | | | | and [place], | [phone] | | | | | [facility] | | | | | | Floor [place], [place] | | | | | | [address] | | | | | | [phone] | | | +--------+---------+ + + + [...] Director, Arrhythmia Service Division of Cardiovascular Medicine [facility] Appointments and Patients: [phone] Division Offices: [phone] Kiara Templeton RN [phone] (a good number to contact us) Custom Garment Designer information systems project manager (after business hours): [phone]. Arrhythmia Service: Raghavendra Gilbert MD, Director. [place] [...] has been in the emergency room in [place] several times with these, and is generally [...] and contro l the episodes, assuming they returns processor to be secondary to NMH. The patient asked about a tilt, but I do not think this would provide useful information in this case. I spent 40 minutes with the patient, over half of which was spent in counseling the patient regarding dizziness. Recommendations/Plan: Bloodwork today. Holter monitor. Increase salt and fluid intake. Follow up on mychart. Raghavendra Gilbert M.D. Director, Electrophysiology [employer] Bank[employer] Associateflamer after lasting [facility] Cardiovascular [facility] [place] [address] documented in th is encounter Plan of [...] interpreted with caution. Test now performed at [facility]. New | | | method effective 08/05/13. Age-adjusted reference ranges are in use. | | + + + + + + + + | Performing | Address | City/State/Zipcode | Phone Number | | Organization | | | | + + + + + | [facility] | [address] | [place] [address] | | | SERVICES, CORE | [address] | | | + + + + + [facility] - COMPLETE METABOLIC SET (08/13/2013 2:25 [...] | | | LABORATORY | | | [place] | | | SERVICES, | | | [...] Interpretive Information: <60 mL/min/1.73 sq m | [facility], | | Chronic Kidney Disease <15 mL/min/1.73 sq m | [place] [facility] | | Kidney Failure Estimated GFR [...] | + + + + + | [facility] | [address] | [place] [address] | | | [facility], [facility] | | | | | HEALTH [...] | + + + + + | [employer] | [address] | [place] [address] | | | SERVICES, [place] [facility] | | | | | HEALTH [...] is a 48 hour Holter | | [facility] DEPT | | | DIAGNOSIS | [...] G[place]ERT | | | | | | (2744) on 09/07/2013 | | | | | | 9:08:12 AM | | | | + + + + + + + + | Specimen | + + | | + + + + + | Narrative | Performed At | + + + | Please click | [facility] | | on view image for the detailed interpretation from [employer] results. | CARDIOLOGY | + + + + + | Procedure Note | + + | Interface, Cardiology Results - 09/07/2013 9:08 AM PST Please click on view image | | for the detailed interpretation from [employer] results. | + + + + + + + | Performing | Address | City/State/Zipcode | Phone Number | | Organization | | | | + + + + + | [facility] | [address] | [place], [place] | | | CARDIOLOGY | [address] | [address] | | + + + + + [...] view image for the detailed interpretation from [employer] results. | CARDIOLOGY | + + + + + | Procedure Note | + + | Interface, Cardiology Results - 08/13/2013 10:36 PM PST Please click on view image | | for the detailed interpretation from [employer] results. | + + + + + + + | Performing | Address | City/State/Zipcode | Phone Number | | Organization | | | | + + + + + | [facility] | [address] | [place], [place] | | | CARDIOLOGY | [address] | [address] | | + + + + + documented in this encounter Visit Diagnoses + + | Diagnosis | + + | Dizziness - Primary Dizziness and giddiness | + + documented in this encounter
--- OUTSIDE RECORDS SUMMARY | ~2019-09-27 | XMS | Encounter Summary ---
Demographics + + + | Address | [address] | | | [place] [address] | + + + | Home Phone | | + + + | Preferred Language | Unknown | + + + | Marital Status | Single | + + + | Jewish Affiliation | LDS | + + + | Race | or | + + + | Ethnic Group | Not or | + + + Author + + + | Author | [facility] | + + + | Organization | [facility] | + + + | Address | Unknown | + + + | Phone | Unavailable | + + + Support + + +---------+ + | Name | Relationship | Address | Phone | + + +---------+ + | Андрей Kenney | ECON | Unknown | | + + +---------+ + Care Team Providers + +------+ + | Care Topographical Engineer Name | Role | Phone | + [...] Ray | | | | | at [facility] | [facility] | | | | | [address] | [place] [address] | | | | | Loop Mailcode: | | | | | | OP[address] [facility] | | | | | | [place] [facility] | | | | | | [place], [place] | | | | | | [address] | | | | | | [phone] | | | +--------+ + + + [...] is a 48 hour Holter | | [facility] | | | DIAGNOSIS | monitor [...] GILBERT | | | | | | ([id number]) on 09/07/2013 | | | | | | 9:08:12 AM | | | | + + + + + + + + | Specimen | + + | | + + + + + | Narrative | Performed At | + + + | Please click | [facility] | | on view image for the detailed interpretation from [employer] results. | CARDIOLOGY | + + + + + | Procedure Note | + + | Interface, Cardiology Results - 09/07/2013 9:08 AM PST Please click on view image | | for the detailed interpretation from [employer] results. | + + + + + + + | Performing | Address | City/State/Zipcode | Phone Number | | Organization | | | | + + + + + | [facility] | [address] | [place], [place] | | | CARDIOLOGY | [address] | [address] | | + + + + + documented in this encounter Visit Diagnoses Not on filedocumented in this encounter"
--- OUTSIDE RECORDS SUMMARY | ~2019-09-27 | XMS | Encounter Summary ---
Demographics + + + | Address | [address] | | | [place] [address] | + + + | Home Phone | | + + + | Preferred Language | Unknown | + + + | Marital Status | Single | + + + | Sikh Affiliation | Unknown | + + + | Race | Unknown | + + + | Ethnic Group | Unknown | + + + Author + + + | Author | [facility] | | | and [place] | + + + | Organization | [facility] | | | [...] Team Providers + +------+ + | Care Broomcorn Grader Name | Role | Phone | + +------+ + PCP | Unavailable | + +------+ + Encounter Details +--------+ + + + + | Date | Type | Department | Care Team | Description | +--------+ + + + + | 12/25/ | Hospital | [facility] | Feliberto Hollis, | | | 1999 | Encounter | MED CTR GENERIC OP | [address] [facility] | | | | | CONV DEPT [address] | [place], [place] | | | | | [place], | [address] | | | | | [place] [address] | | | | | | [phone] | | | +--------+ + + + [...] | | | | | [place] [address] | | | | | | [phone] | | | | | | | [...]
--- OUTSIDE RECORDS SUMMARY | ~2019-09-27 | XMS | Encounter Summary ---
Demographics + + + | Address | [address] | | | [place] [address] | + + + | Home Phone | | + + + | Preferred Language | Unknown | + + + | Marital Status | Single | + + + | Anabaptism Affiliation | LDS | + + + | Race | or | + + + | Ethnic Group | Not or | + + + Author + + + | Author | [facility] | + + + | Organization | [facility] | + + + | Address | Unknown | + + + | Phone | Unavailable | + + + Support + + +---------+ + | Name | Relationship | Address | Phone | + + +---------+ + | Андрей Kenney | ECON | Unknown | | + + +---------+ + Care Team Providers + +------+ + | Care Slitter And Rewinder Machine Operator Name | Role | Phone | [...] [address] | | | | | | [place], [place] | | | | | | [address] | | | | | | [phone] | | | +--------+------+ + + + [...] influenced by a variety of environmental | [facility] | | influences, age, gender and ethnicity. The supplied reference limits | LABORATORY | | are based on published values utilizing a similar TSH assay, and | SERVICES, CORE | | should be interpreted with caution. Test now performed at [facility]. New | | | method effective 08/05/13. Age-adjusted reference ranges are in use. | | + + + + + + + + | Performing | Address | City/State/Zipcode | Phone Number | | Organization | | | | + + + + + | [facility] | [address] | [place] [address] | | | SERVICES, CORE | [address] | | | + + + + + [facility] - COMPLETE METABOLIC SET (08/13/2013 2:25 [...] | | | LABORATORY | | | LIB[facility]IAN | | | SERVICES, | | | [...] LABORATORY | [address] | [place] [address] | | | [facility] [place] [facility] | | | | | HEALTH [...] LABORATORY | | | | | | [facility], | | | | | | [facility] FOR | | | | | | HEALTH + | | | | | | HEALING | | + +-------+ + + + | RED CELL | 4.26 | 4.00 - 5.20 | [facility] | | | COUNT | | M/cu mm | LABORATORY | | | | | | [facility], | | | | | | [place] [facility] | | | | | | [...] SERVICES, | | | | | | [place] [facility] | | | | | | [...] | | | SERVICES, | | | [facility] | | | HEALTH + | | | HEALING | + + + + + + + + | Performing | Address | City/State/Zipcode | Phone Number | | Organization | | | | + + + + + | [facility] | [address] | [place] [address] | | | SERVICES, [place] [facility] | | | | | HEALTH + HEALING | | | | + + + + + documented in this encounter Visit Diagnoses + + | Diagnosis | + + | Dizziness Dizziness and giddiness | + + documented in this encounter"
--- OUTSIDE RECORDS SUMMARY | ~2019-09-27 | XMS | Encounter Summary ---
Demographics + + + | Address | [address] | | | [place] [address] | + + + | Home Phone [...] Team Providers + +------+ + | Care Corporate Banking Officer Name | Role | Phone | + [...] Ray | | | | | at [facility] | [facility] | | | | | [address] | [place] [address] | | | | | Loop Mailcode: | | | | | | [address] [facility] | | | | | | [facility] | | | | | | [place], [place] | | | | | | [address] | | | | | | [phone] | | | +--------+ + + + [...] view image for the detailed interpretation from [employer]. | CARDIOLOGY | + + + + + | Procedure Note | + + | Interface, Cardiology Results - 08/13/2013 10:36 PM PST Please click on view image | | for the detailed interpretation from [employer] results. | + + + + + + + | Performing | Address | City/State/Zipcode | Phone Number | | Organization | | | | + + + + + | [facility] | [address] | [place], [place] | | | CARDIOLOGY | [address] | [address] | | + + + + + documented in this encounter Visit Diagnoses Not on filedocumented in this encounter
--- OUTSIDE RECORDS SUMMARY | ~2019-09-27 | XMS | Encounter Summary ---
Demographics + + + | Address | [address] | | | [place] [address] | + + + | Home Phone | | + + + | Preferred Language | Unknown | + + + | Marital Status | Single | + + + | Zoroastrian Affiliation | LDS | + + + | Race | or | + + + | Ethnic Group | Not or | + + + Author + + + | Author | [facility] | + + + | Organization | [facility] | + + + | Address | Unknown | + + + | Phone | Unavailable | + + + Support + + +---------+ + | Name | Relationship | Address | Phone | + + +---------+ + | Андрей Kenney | ECON | Unknown | | + + +---------+ + Care Team Providers + +------+ + | Care Circular Knife Cutter Machine Name | Role | Phone | + +------+ + PCP | Unavailable | + +------+ + Encounter Details +--------+ + + + + | Date | Type | Department | Care Team | Description | +--------+ + + + + | 07/03/ | Abstract | Cardiology | Unknown . | | | 2012 | | Arrhythmia at [facility] | | | | | | [address] | | | | | | Mailcode: [address] | | | | | | [facility] | | | | | | and Healing, | | | | | | Building | | | | | | [place], [place] | | | | | | [address] | | | | | | [phone] | | | +--------+ + + + [...]
--- OUTSIDE RECORDS SUMMARY | ~2019-09-27 | XMS | Clinical Summary ---
Demographics + + + | Address | [address] | | | [place] [address] | + + + | Home Phone | | + + + | Preferred Language | Unknown | + + + | Marital Status | Single | + + + | Gnosticist Affiliation | Unknown | + + + | Race | Unknown | + + + | Ethnic Group | Unknown | + + + Author + + + | Author | [facility] | | | and [place] | + + + | Organization | [facility] | | | and [place] | + + + | Address | Unknown | + + + | Phone | Unavailable | + + + Support + + +---------+ + | Name | Relationship | Address | Phone | + + +---------+ + | Dion Clintwood | ECON | Unknown | | + + +---------+ + Care Team Providers + +------+ + | Care Floor Supervisor Name | Role | Phone | [...] | | | | | [place] [address] | | | | | | [phone] | | | | | | | | +--------+---------+ + + + | 12/09/ | Office | Sleep Medicine | Adri Metz MD | | | 2020 | Visit | | [address] | | | | | | [place] | | | | | | [address] | | | | | | | [...] +--------+ +---------+--------+ | CCMSI | CCMSI | [id number] | | [phone] | | Indemn | | | WC | | 019-Pr | 8 | | ity | | | | | esent | | | | + +--------+ +--------+ +---------+--------+ | MEDICARE | MEDICA | [id number] | | [phone] | | Medica | | | RE | | 019-Pr | 5 | | re | | | PART A | | esent | | | | | | AND B | | | | | | + +--------+ +--------+ +---------+--------+ | [facility] | IHS | [id number] | | | | Indemn | | [...] | 1970 | [phone] | [place] [address] | | | angela | | | 6 (Home) | | + +--------+ +--------+ + + | Sherrie Jewell | Worker | Self | [birth year] | | [address] | | | s Comp | | 1969 | [phone] | [address] [place] , | | | | | | 3 (Home) | [place] [address] | + +--------+ +--------+ + + Advance Directives + + + + + | Type | Date Recorded | Patient | Explanation | | | | Apigee Developer | | + + + + + | Power of | | | | | Blacktop Spreader | | | | + + + + + | Advance | | | | | Directive | | | | + + + + +"
--- OUTSIDE RECORDS SUMMARY | ~2019-09-27 | XMS | Encounter Summary ---
Demographics + + + | Address | [address] | | | [place] [address] | + + + | Home Phone | | + + + | Preferred Language | Unknown | + + + | Marital Status | Single | + + + | Jehovah'S Witness Affiliation | Unknown | + + + [...] Team Providers + +------+ + | Care Family Therapist Name | Role | Phone | + +------+ + PCP | Unavailable | + +------+ + Encounter Details +--------+ + + + + | Date | Type | Department | Care Team | Description | +--------+ + + + + | / | [facility] | [facility] | Feliberto Hollis, | | | 1999 | Encounter | MED CTR GENERIC OP | [address] [facility] | | | | | CONV DEPT [address] | [place], [place] | | | | | [place], | [address] | | | | | [place] [address] | | | | | | [phone] | | | +--------+ + + + [...] 2020 | Visit | and Rehabilitation | [facility] [address] | | | | | | [address] [place] | | | | | | [place] [address] | | | | | | [phone] | | | | | | | [...]
--- OUTSIDE RECORDS SUMMARY | ~2019-09-27 | XMS | Encounter Summary ---
Demographics + + + | Address | [address] | | | [place] [address] | + + + | Home Phone | | + + + | Preferred Language | Unknown | + + + | Marital Status | Single | + + + | Hinduism Affiliation | Unknown | + + + | Race | Unknown | + + + | Ethnic Group | Unknown | + + + Author + + + | Author | [facility] | | | and [place] | + + + | Organization | [facility] | | | and [...] Team Providers + +------+ + | Care Civil Transportation Engineer Name | Role | Phone | [...] [place] | | | | | [phone] | [place] [address] | | +--------+ + + + + [...] | | | | | [place] [address] | | | | | | [phone] | | | | | | | | +--------+---------+ + + + | 12/09/ | Office | Sleep Medicine | Adri Metz MD | | | 2019 | Visit | | [address] | | | | | | [place] | | | | | | [address] | | | | | | | [...]
--- OUTSIDE RECORDS SUMMARY | ~2019-09-27 | XMS | Clinical Summary ---
Demographics + + + | Address | [address] | | | [place] [address] | + + + | Home Phone | | + + + | Preferred Language | Unknown | + + + | Marital Status | Unknown | + + + | Zoroastrian Affiliation | Unknown | + + + | Race | Unknown | + + + | Ethnic Group | Unknown | + + + Author + + + | Author | [employer] [facility] (Historical as of | | | 05-09-19) | + + + | Organization | [facility] (Historical as of | | | 05-09-19) | + + + | Address | Unknown | + + + | Phone | Unavailable | + + + Care Team Providers + +------+ + | Care Photogrammetric Tech Name | Role | Phone | [...] +------+-------+ + | MEDICARE | MEDICA | [id number] | | | [address] | | | RE | | | | [place] [address] | | | IP-OP | | | | | + +--------+ +------+-------+ + | MEDICAID | [place] | [id number] | | | [address] | | | | | | | [place] | | | MEDICA | | | | [address] | | | ID | | | [...] | 1970 | [phone] | [place] [address] | | | [place] | | | [address] | | + +--------+ +--------+ + +"
[~2019-09-27 05:01] MED LIST changes: +CIFEREX 3,7751 EACH PO; +MAGNESIUM100 MG PO; +MELATONIN3 M3 PO
--- OUTSIDE RECORDS SUMMARY | 2019-09-27 05:04 | XMS ---
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 Care History Medical/Surgical 07/07/2019 [facility] - W CALLED PCP OFFICE-DR BRITO-PATIENT CANCELLED LAST APT WITH PCP ON 05/11. PATIENT HAS NOT RESCHEDULED THE APT. - [facility] CALLED AND LEFT PATIENT A VOICEMAIL. - [facility] SENT PATIENT PCP UTILIZATION LETTER. E.D. VISIT COUNT (12 MO.) [address] [place] [address] TOTAL 6 NOTE: Visits indicate total known visits. ED/UCC VISIT TRACKING (12 MO.) 09/27/2019 05:01 [facility] [place] TYPE: Emergency COMPLAINT: - FALL 07/06/2019 09:40 [facility] [place] TYPE: Emergency COMPLAINT: - CP, HEAD ACHE DIAGNOSES: - Migraine, unsp, not intractable, without status migrainosus - Allergy status to other antibiotic agents status - Other drama therapist (current) drug therapy - Pain in left shoulder - Nicotine dependence, unspecified, uncomplicated - Anxiety disorder, unspecified - Nicotine dependence, cigarettes, uncomplicated - Anxiety disorder, unspecified - Allergy status to narcotic agent status - Pain in left shoulder - Anemia, unspecified 06/24/2019 21:36 [facility] [place] TYPE: Emergency COMPLAINT: - PAIN DIAGNOSES: - Other drama therapist (current) drug therapy - Sacrococcygeal disorders, not [...] to other antibiotic agents status - Other drama therapist (current) drug therapy - Syncope and collapse - Contusion of scalp, initial encounter - Fall on same level, unspecified, initial encounter 06/12/2019 11:44 [facility] [place] TYPE: Emergency COMPLAINT: - FALL, BACK PAIN DIAGNOSES: - Other drama therapist (current) drug therapy - Low back pain - Contusion of lower back and pelvis, initial encounter - Fall (on) (from) other stairs and steps, initial encounter - Allergy status to other antibiotic agents status 05/09/2019 17:[address] [facility] [place] TYPE: Emergency COMPLAINT: - CHEST PAIN DIAGNOSES: - Other care home (current) drug therapy - Nicotine dependence, unspecified, uncomplicated - Chest pain, unspecified - Allergy status to other antibiotic agents status INPATIENT VISIT TRACKING (12 MO.) No inpatient visits to display in this time frame [email or web address]
[2019-09-27] MEDS ORDERED: SPIRONOLACTONE25 MG PO (05:16)
[2019-09-27] MEDS ORDERED: BUSPIRONE HCL7.5 MG PO (05:17)
[2019-09-27] MEDS ORDERED: CYMBALTA20 MG PO (05:17)
[2019-09-27] MEDS ORDERED: BACTRIM 400-801 EACH PO (05:19)
[2019-09-27] MEDS ORDERED: MULTI VITAMIN1 EACH PO (05:19)
--- NOTE | 2019-09-27 10:32 | EKG ---
[facility] [address] [place], [place] [address] Signed Normal sinus rhythm Septal infarct (cited on or before 09-MAY-2019) Abnormal ECG When compared with ECG of 06-JUL-2019 10:07, Questionable change in initial forces of Septal leads Confirmed by NICHELLE WOLREY DO ([id number]) on 09/27/2019 10:31:53 AM Electronically Signed By: NICHELLE WORLEY DO 09/27/19 1032 PATIENT NAME: AZAM TIERNEY Electrocardiogram DATE OF : 72 PHYSICIAN: NICHELLE WORLEY DO REPORT #: [id number] REPORT IS CONFIDENTIAL AND NOT TO BE RELEASED WITHOUT AUTHORIZATION
== END 2019-09-27 07:18 | disposition home or self-care (01) ==
LOC: ED 05:01
DX: S02.2XXA Fracture of nasal bones, initial encounter for closed fracture (principal); S16.1XXA Strain of muscle, fascia and tendon at neck level, initial encounter; S00.83XA Contusion of other part of head, initial encounter; W01.198A Fall on same level from slipping, tripping and stumbling with subsequent striking against other object, initial encounter; F17.200 Nicotine dependence, unspecified, uncomplicated; Z88.5 Allergy status to narcotic agent; Z88.1 Allergy status to other antibiotic agents; Z79.899 Other long term (current) drug therapy
CPT/HCPCS: 70450; 70486; 72125; 80053; 83735; 84703; 85025; 93005; 93010; 99284-25

== ENCOUNTER 2020-08-25 20:19 | Emergency (ER) | payer MEDICARE, OTHER ==
[~2020-08-25] VITALS: Ht 172.7 cm; Wt 71.2 kg
[~2020-08-25 20:19] MED LIST changes: +BACTRIM 400-801 EACH PO; +BUPRENORPHIN-N1 EACH SL; +BUSPIRONE HCL7.5 MG PO; +CHANTIX0.5 MG PO; +CYMBALTA20 MG PO; +FIORINAL-COD 31 EACH PO; +FLUOXETINE HCL60 MG PO; +IRON325 M1 PO; +MULTI VITAMIN1 EACH PO; +SPIRONOLACTONE25 MG PO
[2020-08-25] MEDS ORDERED: CHANTIX1 MG PO (20:38)
[2020-08-25] MEDS ORDERED: DULOXETINE HCL20 MG PO (20:38)
[2020-08-25] MEDS ORDERED: BUTALB-ACETAMI1 EACH PO (20:38)
[2020-08-25] MEDS ORDERED: MIRTAZAPINE15 MG PO (20:39)
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
== END 2020-08-25 22:51 | disposition home or self-care (01) ==
LOC: ED 20:19
DX: R53.81 Other malaise (principal); R11.2 Nausea with vomiting, unspecified; R19.7 Diarrhea, unspecified; R30.0 Dysuria; F17.200 Nicotine dependence, unspecified, uncomplicated; Z88.1 Allergy status to other antibiotic agents; Z88.5 Allergy status to narcotic agent; Z79.899 Other long term (current) drug therapy
CPT/HCPCS: 80053; 81001; 83690; 84703; 85025; 96374; 99283-25; C9803; J2765; J7030; U0003

== ENCOUNTER 2020-09-10 15:00 | Observation (INO) | payer MEDICARE, OTHER ==
[~2020-09-10] VITALS: Ht 172.7 cm; Wt 77.9 kg
[~2020-09-10 15:00] MED LIST changes: +CHANTIX1 MG PO; +DULOXETINE HCL20 MG PO; +MIRTAZAPINE15 MG PO
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
[2020-09-10] MEDS ORDERED: BUSPIRONE HCL15 MG PO (15:29)
[2020-09-10] MEDS ORDERED: OMEPRAZOLE20 MG PO (15:30)
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
--- NOTE | 2020-09-10 19:30 | NUR ---
REPORT TO NEXT SHIFT. PATIENT IS SLEEP AT THIS TIME.
--- NOTE | 2020-09-10 20:40 | NUR ---
PT CHECKED ON. PT SLEEPING AT THIS TIME, RESPIRATIONS EVEN AND UNLABORED. PT LEFT UNDISTURBED AT THIS TIME. WILL CONTINUE PLAN OF CARE.
--- NOTE | 2020-09-10 21:39 | EKG ---
[facility] [address] [place] [address] Signed Normal sinus rhythm Normal ECG When compared with ECG of 27-SEP-2019 05:06, Criteria for Septal infarct are no longer present Confirmed by MARIA DEL CARMEN HORNE MD ([id number]) on 09/10/2020 9:39:24 PM Electronically Signed By: MARIA DEL CARMEN HORNE MD 09/10/20 2139 PATIENT NAME: AZAM TIERNEY Electrocardiogram DATE OF : 72 PHYSICIAN: MARIA DEL CARMEN HORNE MD REPORT #: [id number] REPORT IS CONFIDENTIAL AND NOT TO BE RELEASED WITHOUT AUTHORIZATION
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
--- NOTE | 2020-09-10 22:20 | NUR ---
PT TAKEN OFF OF OXYGEN AND ETCO2 MONTIOR. PT NOW HAS AN SPO2 OF 92%, RR OF 16. PT STATES SHE IS HAVING MILD STOMACH CRAMPS FROM EATING HER JELLO. PT REPORTS NO FURTHER NEEDS. WILL CONTINUE PLAN OF CARE.
--- NOTE | 2020-09-10 22:42 | NUR ---
PT PLACED ON 1L NC DUE TO HAVING SATURATIONS OF 89. PT REPORTS NO FURTHER NEEDS WHEN ASKED AND RETURNED BACK TO SLEEP. WILL CONTINUE PLAN OF CARE. BED IN LOWEST POSITION, CALL LIGHT WITHIN REACH. SPO2 NOW AT 94%, RR AT 15.
--- NOTE | 2020-09-10 23:00 | NUR ---
PT IN BED SLEEPING. IVF INFUSING AT ORDERED RATE. PT ON 1L O2 VIA NC. SPO2 AT 97%, RR AT 20. RESPIRATIONS ARE EVEN AND UNLABORED. PT LEFT UNDISTURBED. WILL CONTINUE PLAN OF CARE.
--- NOTE | 2020-09-11 00:50 | NUR ---
PT SLEEPING IN BED, IV FLUIDS INFUSING ORDERED. PT ASSESSED AND AWOKE DURING THAT TIME. PT REPORTED A MINOR HEADACHE, PT WAS GIVEN ICE PACK AND INFORMED THE NEXT DOSE OF TYLENOL COULD NOT YET BE TAKEN. PT ASKED FOR MORE JUICE, WHICH WAS PROVIDED. PT REPORTS NO FURTHER NEEDS WHEN ASKED AND WILL RETURN BACK TO SLEEP. BED IN LOWEST POSITION, CALL LIGHT WITHIN REACH, WILL CONTINUE PLAN OF CARE.
--- NOTE | 2020-09-11 03:04 | NUR ---
PT IN BED SLEEPING. RESPIRATIONS EVEN AND UNLABORED, SP2 AT 98%, PT ON 1L O2 NC, RR AT 14. PT IN NO APPARENT DISTRESS AND WAS LEFT UNDISTURBED. WILL CONTINUE PLAN OF CARE.
--- NOTE | 2020-09-11 03:40 | NUR ---
AWAKE, C/O ROSE AND REQUESTING TYLENOL. GIVEN 650MG TYLENOL PO.
--- NOTE | 2020-09-11 03:51 | NUR ---
AMB TO BATHROOM TO VOID AND PT REPORTS LIQ STOOL. STATES FEELS WEEK. 02 OFF FOR NOW SAT 95%.
--- NOTE | 2020-09-11 04:08 | NUR ---
PT LAYING IN BED RESTING. PT AWOKE WHEN CALLING HER NAME. PT WAS ASSESSED. PT REPORTS STILL FEELING DROWSY AT THIS TIME WHEN ASKED. PT PROVIDED WITH WATER AND JUICE PER HER REQUEST. PT REPORTS NO FURTHER NEEDS AT THIS TIME. WILL CONTINUE PLAN OF CARE. CALL LIGHT WITHIN REACH, BED IN LOWEST POSITION. PT STILL ON 1L O2 NC, IV FLUIDS INFUSING ORDERED.
--- NOTE | 2020-09-11 06:24 | NUR ---
PT SLEEPING IN BED, RESPIRATIONS EVEN AND UNLABORED. PT IN NO APPARENT DISTRESS AND WAS LEFT UNDISTURBED. PT ON ROOM AIR SPO2 AT 95%, RR AT 25. IV FLUIDS INFUSING AT ORDERED RATE. WILL CONTINUE PLAN OF CARE.
--- NOTE | 2020-09-11 07:30 | NUR ---
Report received, orders acknowledged. Patient sleeping in bed, respirations even and unlabored. SpO2 of 96% on RA. Call light wihtin reach.
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
--- NOTE | 2020-09-11 09:03 | NUR ---
Dr. Johnson in room to assess patient and discuss POC
--- NOTE | 2020-09-11 10:30 | NUR ---
IV magnesium hung and infusing. IV toradol given for headache pain. Patient reports pain of 6/10. Warm blanket provided, ice pack given to patient for ROSE, and warm pack given for stomach cramps. Patient denies further needs, call light within reach.
[2020-09-11] MEDS ORDERED: BUPRENORPHINE HC8 MG SL (12:24)
--- NOTE | 2020-09-11 12:45 | NUR ---
[employer] called for update on patient. Plan for staff member to visit patient this afternoon.
--- NOTE | 2020-09-11 13:00 | NUR ---
Patient sitting up in bed on cell phone and watching tv. Call light within reach.
--- NOTE | 2020-09-11 13:45 | NUR ---
Lunch delivered. Patient sitting up at edge of bed with both feet on floor. Saline locked. Denies pain or nausea. Reports menstrual cycle just started, pads and attends provided. Patient denies needs, call light within reach.
[2020-09-11] MEDS ORDERED: PRENATAL VITAM1 EAC5 PO (13:52)
[2020-09-11] MEDS ORDERED: VALACYCLOVIR500 MG PO (13:52)
[2020-09-11] MEDS ORDERED: CHANTIX1 MG PO (13:52)
--- NOTE | 2020-09-11 13:54 | NUR ---
MED REC COMPLETE
== END 2020-09-11 17:15 | disposition home or self-care (01) ==
LOC: ED 15:00 → CCU 15:02
PROVIDERS: ADMIT Internal Medicine; ATTEND Internal Medicine
DX: T42.4X2A Poisoning by benzodiazepines, intentional self-harm, initial encounter (principal); F10.10 Alcohol abuse, uncomplicated; M19.90 Unspecified osteoarthritis, unspecified site; F41.9 Anxiety disorder, unspecified; F17.200 Nicotine dependence, unspecified, uncomplicated; Z88.5 Allergy status to narcotic agent; Z88.1 Allergy status to other antibiotic agents; Z98.84 Bariatric surgery status; Z90.49 Acquired absence of other specified parts of digestive tract; Z79.899 Other long term (current) drug therapy; Z20.828 Contact with and (suspected) exposure to other viral communicable diseases
CPT/HCPCS: 36415; 51701; 80048; 80053; 80176; 81001; 83735; 84443; 84703; 85025; 93005; 93010; 96365; 96375; 99285-25; C9803; G0378; G0480; J1885; J2405; J3475; J3480; U0003

== ENCOUNTER 2021-01-22 21:40 | Emergency (ER) | payer OTHER, MEDICARE ==
[~2021-01-22] VITALS: Ht 172.7 cm; Wt 77.6 kg
[~2021-01-22 21:40] MED LIST changes: +BUPRENORPHINE HC8 MG SL; +BUSPIRONE HCL15 MG PO; +PRENATAL VITAM1 EAC5 PO; +VALACYCLOVIR500 MG PO
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
== END 2021-01-22 23:45 | disposition home or self-care (01) ==
LOC: ED 21:40
DX: S39.012A Strain of muscle, fascia and tendon of lower back, initial encounter (principal); S80.212A Abrasion, left knee, initial encounter; V86.99XA Unspecified occupant of other special all-terrain or other off-road motor vehicle injured in nontraffic accident, initial encounter; F17.200 Nicotine dependence, unspecified, uncomplicated; Z88.1 Allergy status to other antibiotic agents; Z88.5 Allergy status to narcotic agent; Z79.899 Other long term (current) drug therapy
CPT/HCPCS: 72070; 72125; 99284-25

== ENCOUNTER 2021-02-03 17:10 | Emergency (ER) | payer MEDICARE, OTHER ==
[~2021-02-03] VITALS: Ht 172.7 cm; Wt 77.6 kg
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
[2021-02-03] MEDS ORDERED: CLONAZEPAM1 MG PO (17:42)
[2021-02-03] MEDS ORDERED: HYDROXYZINE HCL25 MG PO (18:53)
[2021-02-03] MEDS ORDERED: ZOFRAN4 MG PO (18:53)
== END 2021-02-03 19:40 | disposition home or self-care (01) ==
LOC: ED 17:10
DX: T43.621A Poisoning by amphetamines, accidental (unintentional), initial encounter (principal); F17.200 Nicotine dependence, unspecified, uncomplicated; Z88.1 Allergy status to other antibiotic agents; Z88.5 Allergy status to narcotic agent; Z79.899 Other long term (current) drug therapy
CPT/HCPCS: 80053; 81001; 83690; 85025; 96374; 96375; 99284-25; J2060; J2405; J2765; J7030

== ENCOUNTER 2022-01-29 15:27 | Emergency (ER) | payer MEDICARE, OTHER ==
[~2022-01-29] VITALS: Ht 172.7 cm; Wt 64.9 kg
[~2022-01-29 15:27] MED LIST changes: +HYDROXYZINE HCL25 MG PO; +ZOFRAN4 MG PO
--- OUTSIDE RECORDS SUMMARY | 2022-01-29 15:30 | XMS ---
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 Care History Medical/Surgical 01/23/2021 [facility] - PATIENT CURRENTLY ON A PAIN CONTRACT WITH DR MASOOD De Leon Recommendation: - PLEASE REVIEW PDMP - ALESHA - USE EXTREME CAUTION IN GIVING NARCOTICS. - Avoid Discharge Narcotic prescriptions if at all possible. Physician discretion. E.D. VISIT COUNT (12 MO.) [address] [facility] TOTAL 2 NOTE: Visits indicate total known visits. ED/UCC VISIT TRACKING (12 MO.) 01/29/2022 15:28 [facility] [place] TYPE: Emergency COMPLAINT: - LT KNEE INJURY 02/03/2021 17:12 [facility] [place] TYPE: Emergency COMPLAINT: - VOMITING,ABD PAIN DIAGNOSES: - Other intermediate (current) drug therapy - Allergy status to other antibiotic agents - Poisoning by amphetamines, accidental (unintentional), initial encounter - Allergy status to narcotic agent - Nicotine dependence, unspecified, uncomplicated INPATIENT VISIT TRACKING (12 MO.) No inpatient visits to display in this time frame [email or web address]
[2022-01-29] MEDS ORDERED: CEPHALEXIN500 M1 PO (18:51)
== END 2022-01-29 19:33 | disposition home or self-care (01) ==
LOC: ED 15:27
DX: S84.92XA Injury of unspecified nerve at lower leg level, left leg, initial encounter (principal); N39.0 Urinary tract infection, site not specified; M19.90 Unspecified osteoarthritis, unspecified site; F17.200 Nicotine dependence, unspecified, uncomplicated; Z88.1 Allergy status to other antibiotic agents; Z88.5 Allergy status to narcotic agent; Z79.899 Other long term (current) drug therapy; X58.XXXA Exposure to other specified factors, initial encounter
CPT/HCPCS: 81001; 84703; 93971; 99284-25; A9270

== ENCOUNTER 2022-04-14 21:49 | Emergency (ER) | payer OTHER ==
[~2022-04-14] VITALS: Ht 172.7 cm; Wt 62.6 kg
[~2022-04-14 21:49] MED LIST changes: +CEPHALEXIN500 M1 PO; +CEPHALEXIN500 MG PO; +DULOXETINE HCL30 MG PO; +FISH OIL 1,0001 EAC2 PO; +HYDROCODON-ACE1 EA10 PO; +M-NATAL PLUS T1 EACH PO
--- OUTSIDE RECORDS SUMMARY | 2022-04-14 21:51 | XMS ---
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 Care History Medical/Surgical 01/23/2021 [facility] - PATIENT CURRENTLY ON A PAIN CONTRACT WITH DR MASOOD De Leon Recommendation: - PLEASE REVIEW PDMP - ALESHA - USE EXTREME CAUTION IN GIVING NARCOTICS. - Avoid Discharge Narcotic prescriptions if at all possible. Physician discretion. E.D. VISIT COUNT (12 MO.) 5 TE[facility] TOTAL 5 NOTE: Visits indicate total known visits. ED/UCC VISIT TRACKING (12 MO.) 04/14/2022 21:49 [facility] [place] TYPE: Emergency COMPLAINT: - ABD PAIN 04/14/2022 20:53 [facility] [place] TYPE: Emergency COMPLAINT: - ABD PAIN 02/24/2022 01:03 [facility] [place] TYPE: Emergency COMPLAINT: - FLANK PAIN, URINE PROBLEM DIAGNOSES: - Unspecified abdominal pain - Allergy status to other antibiotic agents - Unspecified osteoarthritis, unspecified site - Other stimulant abuse, uncomplicated - Urinary tract infection, site not specified - Allergy status to narcotic agent - COVID-19 - Hydronephrosis with renal and ureteral calculous obstruction - Nicotine dependence, unspecified, uncomplicated - Other alf (current) drug therapy 02/05/2022 03:18 [facility] [place] TYPE: Emergency COMPLAINT: - CHEST PAIN DIAGNOSES: - Nicotine dependence, unspecified, uncomplicated - Patient's other noncompliance with medication regimen - Urinary tract infection, site not specified - Allergy status to narcotic agent - Contact with and (suspected) exposure to COVID-19 - Chest pain, unspecified - Acute upper respiratory infection, unspecified - Allergy status to other antibiotic agents 01/29/2022 15:[address] [facility] [place] TYPE: Emergency COMPLAINT: - LT KNEE INJURY DIAGNOSES: - Injury of unspecified nerve at lower leg level, left leg, initial encounter - Other termination clerk (current) drug therapy - Urinary tract infection, site not specified - Unspecified osteoarthritis, unspecified site - Allergy status to narcotic agent - Allergy status to other antibiotic agents - Nicotine dependence, unspecified, uncomplicated - Pain in left lower leg - Exposure to other specified factors, initial encounter INPATIENT VISIT TRACKING (12 MO.) 02/24/2022 06:03 [facility] [place] TYPE: Urology DIAGNOSES: - Kidney Stone, UTI - Tubulo-interstitial nephritis, not specified as acute or chronic [email or web address]
[2022-04-15] MEDS ORDERED: ULTRAM50 MG PO (00:01)
[2022-04-15] MEDS ORDERED: MELOXICAM15 MG PO (00:02)
[2022-04-18] MEDS ORDERED: CEPHALEXIN500 M1 PO (13:25)
== END 2022-04-15 00:42 | disposition home or self-care (01) ==
LOC: ED 21:49
DX: N20.0 Calculus of kidney (principal); M19.90 Unspecified osteoarthritis, unspecified site; Z87.442 Personal history of urinary calculi; F17.200 Nicotine dependence, unspecified, uncomplicated; Z88.5 Allergy status to narcotic agent; Z88.1 Allergy status to other antibiotic agents; Z79.899 Other long term (current) drug therapy
CPT/HCPCS: 36415; 74176; 80053; 81001; 83690; 84703; 85025; 87088; 96374; 96375; 99284-25; A9270; J1885; J2270; J2405; J7030

== ENCOUNTER 2022-10-06 15:38 | Emergency (ER) | payer OTHER ==
[~2022-10-06] VITALS: Ht 172.7 cm; Wt 62.6 kg
[~2022-10-06 15:38] MED LIST changes: +MELOXICAM15 MG PO; +ULTRAM50 MG PO
--- OUTSIDE RECORDS SUMMARY | 2022-10-06 15:40 | XMS ---
PreManage Notification: AZAM TIERNEY Security Temperature Regulator Events 1 event(s) in the past 18 months Most recent security events: Elopement at [facility] 04/14/2022 20:53 - Patient eloped before treatment completed. - Patient with suicidal and/or homicidal ideations eloped. - Patient eloped with IV in place. Details: PATIENT LWBS CRITERIA MET - [facility] - 2 Visits in 30 Days - PDMP CARE PROVIDERS LALITO MEDINA Physician Insights Analyst: Medical 09/28/2019-Current PHONE: Unknown LILY MENDOZA [facility] 06/16/2019-Current PHONE: Unknown Alesha has no Care Guidelines for this patient. Care History Medical/Surgical 01/23/2021 [facility] - PATIENT CURRENTLY ON A PAIN CONTRACT WITH DR MASOOD De Leon Recommendation: - PLEASE REVIEW PDMP - ALESHA - USE EXTREME CAUTION IN GIVING NARCOTICS. - Avoid Discharge Narcotic prescriptions if at all possible. Physician discretion. E.D. VISIT COUNT (12 MO.) [address] [facility] TOTAL 8 NOTE: Visits indicate total known visits. ED/UCC VISIT TRACKING (12 MO.) 10/06/2022 15:38 [facility] [place] TYPE: Emergency COMPLAINT: - COLD SYMPTOMS 10/03/2022 14:19 [facility] [place] TYPE: Emergency COMPLAINT: - FLU SYMPTOMS, BODY ACHES, SOB, V/D 04/18/2022 10:40 [facility] [place] TYPE: Emergency COMPLAINT: - FLANK PAIN DIAGNOSES: - Unspecified abdominal pain - Urinary tract infection, site not specified - Nicotine dependence, unspecified, uncomplicated - Bariatric surgery status - Allergy status to other antibiotic agents - Calculus of kidney - Allergy status to narcotic agent 04/14/2022 21:49 [facility] [place] TYPE: Emergency COMPLAINT: - ABD PAIN DIAGNOSES: - Allergy status to narcotic agent - Allergy status to other antibiotic agents - Unspecified abdominal pain - Unspecified osteoarthritis, unspecified site - Calculus of kidney - Other director long term care (current) drug therapy - Nicotine dependence, unspecified, uncomplicated - Personal history of urinary calculi 04/14/2022 20:53 [facility] [place] TYPE: Emergency COMPLAINT: - ABD PAIN 02/24/2022 01:03 [facility] [place] TYPE: Emergency COMPLAINT: - FLANK PAIN, URINE PROBLEM DIAGNOSES: - Urinary tract infection, site not specified - Unspecified osteoarthritis, unspecified site - Other care home (current) drug therapy - Unspecified abdominal pain - Hydronephrosis with renal and ureteral calculous obstruction - Allergy status to narcotic agent - Other stimulant abuse, uncomplicated - Allergy status to other antibiotic agents - Nicotine dependence, unspecified, uncomplicated - COVID-19 02/05/2022 03:18 [facility] [place] TYPE: Emergency COMPLAINT: - CHEST PAIN DIAGNOSES: - Contact with and (suspected) exposure to COVID-19 - Urinary tract infection, site not specified - Nicotine dependence, unspecified, uncomplicated - Allergy status to other antibiotic agents - Chest pain, unspecified - Allergy status to narcotic agent - Patient's other noncompliance with medication regimen - Acute upper respiratory infection, unspecified 01/29/2022 15:28 [facility] [place] TYPE: Emergency COMPLAINT: - LT KNEE INJURY DIAGNOSES: - Allergy status to narcotic agent - Urinary tract infection, site not specified - Injury of unspecified nerve at lower leg level, left leg, initial encounter - Pain in left lower leg - Allergy status to other antibiotic agents - Unspecified osteoarthritis, unspecified site - Other care home (current) drug therapy - Exposure to other specified factors, initial encounter - Nicotine dependence, unspecified, uncomplicated INPATIENT VISIT TRACKING (12 MO.) 02/24/2022 06:03 [facility] [place] TYPE: Urology DIAGNOSES: - Kidney Stone, UTI - Tubulo-interstitial nephritis, not specified as acute or chronic [email or web address]
[2022-10-06] MEDS ORDERED: DULOXETINE HCL30 MG PO (16:03)
[2022-10-06] MEDS ORDERED: PREDNISONE20 MG PO (18:37)
[2022-10-06] MEDS ORDERED: CEPHALEXIN500 M1 PO (18:37)
[2022-10-06] MEDS ORDERED: ONDANSETRON ODT4 MG PO (18:37)
== END 2022-10-06 18:50 | disposition home or self-care (01) ==
LOC: ED 15:38
DX: J40 Bronchitis, not specified as acute or chronic (principal); B97.4 Respiratory syncytial virus as the cause of diseases classified elsewhere; N39.0 Urinary tract infection, site not specified; M19.90 Unspecified osteoarthritis, unspecified site; F17.200 Nicotine dependence, unspecified, uncomplicated; Z88.1 Allergy status to other antibiotic agents; Z88.5 Allergy status to narcotic agent; Z79.899 Other long term (current) drug therapy; Z20.822 Contact with and (suspected) exposure to COVID-19
CPT/HCPCS: 81001; 87502; 99283; A9270; C9803; J1100; U0003

== ENCOUNTER 2022-10-08 07:16 | Emergency (ER) | payer OTHER ==
[~2022-10-08] VITALS: Ht 172.7 cm; Wt 71.3 kg
[~2022-10-08 07:16] MED LIST changes: +ONDANSETRON ODT4 MG PO
--- OUTSIDE RECORDS SUMMARY | 2022-10-08 07:19 | XMS ---
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 - Patient with suicidal and/or homicidal ideations eloped. - Patient eloped with IV in place. Details: PATIENT LWBS CRITERIA MET - PDMP - [facility] - 2 Visits in 30 Days - 6 ED Visits in 6 Months CARE PROVIDERS LALITO MEDINA Physician Pit And Auxiliaries Supervisor: Medical 09/28/2019-Current PHONE: Unknown LILY MENDOZA [facility] 06/16/2019-Current PHONE: Unknown Alesha has no Care Guidelines for this patient. Care History Medical/Surgical 01/23/2021 [facility] - PATIENT CURRENTLY ON A PAIN CONTRACT WITH DR MASOOD De Leon Recommendation: - PLEASE REVIEW PDMP - ALESHA - USE EXTREME CAUTION IN GIVING NARCOTICS. - Avoid Discharge Narcotic prescriptions if at all possible. Physician discretion. E.D. VISIT COUNT (12 MO.) [address] [facility] TOTAL 9 NOTE: Visits indicate total known visits. 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 - Nicotine dependence, unspecified, uncomplicated - Personal history of urinary calculi 04/14/2022 20:53 [facility] [place] TYPE: Emergency COMPLAINT: - ABD PAIN 02/24/2022 01:03 [facility] [place] TYPE: Emergency COMPLAINT: - FLANK PAIN, URINE PROBLEM DIAGNOSES: - Urinary tract infection, site not specified - Unspecified osteoarthritis, unspecified site - Other chcf (current) drug therapy - Unspecified abdominal pain [...] - Unspecified osteoarthritis, unspecified site - Other [facility] (current) drug therapy - Exposure to other specified factors, initial encounter - Nicotine dependence, unspecified, uncomplicated INPATIENT VISIT TRACKING (12 MO.) 02/24/2022 06:03 [facility] [place] TYPE: Urology DIAGNOSES: - Kidney Stone, UTI - Tubulo-interstitial nephritis, not specified as acute or chronic [email or web address]
[2022-10-08] MEDS ORDERED: AMOX TR-K CLV1 EAC1 PO ×2 (11:10→11:14)
--- NOTE | 2022-10-10 13:56 | EKG ---
[facility] [address] [facility] [facility] [place] [address] Signed Normal sinus rhythm Anteroseptal infarct , age undetermined Abnormal ECG No previous ECGs available Confirmed by ROSA BAGLEY MD ([id number]) on 10/10/2022 1:56:10 PM Electronically Signed By: ROSA BAGLEY MD 10/10/22 1356 PATIENT NAME: AZAM TIERNEY Electrocardiogram DATE OF : 72 PHYSICIAN: ROSA BAGLEY MD REPORT #: [id number] REPORT IS CONFIDENTIAL AND NOT TO BE RELEASED WITHOUT AUTHORIZATION
== END 2022-10-08 12:16 | disposition home or self-care (01) ==
LOC: ED 07:16
DX: J18.9 Pneumonia, unspecified organism (principal); F15.10 Other stimulant abuse, uncomplicated; N39.0 Urinary tract infection, site not specified; M19.90 Unspecified osteoarthritis, unspecified site; F17.200 Nicotine dependence, unspecified, uncomplicated; Z88.1 Allergy status to other antibiotic agents; Z88.5 Allergy status to narcotic agent; Z79.899 Other long term (current) drug therapy; Z79.52 Long term (current) use of systemic steroids
CPT/HCPCS: 36415; 71045; 71260; 80053; 81001; 84484; 85025; 85379; 93005; 93010; 96375; 99285-25; J0696; J1885; Q9967

== ENCOUNTER 2025-01-16 20:43 | Emergency (ER) | payer OTHER ==
[~2025-01-16] VITALS: Ht 172.7 cm; Wt 78.7 kg
[~2025-01-16 20:43] MED LIST changes: +AMOX TR-K CLV1 EAC1 PO
[2025-01-16 21:16] LABS: BASOPHILS 1.8 % (0-2); EOSINOPHILS 5.3 % (0-6); HEMATOCRIT 28.9 % (35.0-50.0); LYMPHOCYTES 31.5 % (24-44); MCH 21.7 (27-36); MCHC 31.2 g/dl (30-36); MCV 69.6 fl (81-99); MONOCYTES 11.1 % (0-12); NEUTROPHILS 50.3 % (39-80); PLATELET COUNT 383 K/uL (140-440); RBC 4.15 M/ul (4.3-5.7); RDW 20.3 (10.5-15.0)
[2025-01-16 21:30] LABS: ALBUMIN 3.5 g/dL (3.4-5.0); BILIRUBIN, TOTAL 0.2 mg/dL (0.2-1.0); BUN/CREATININE RATIO 24.05 (6.0-28.6); CALCIUM 8.4 mg/dL (8.5-10.1); CREATININE, SERUM 0.79 mg/dL (0.55-1.02); MAGNESIUM 2.1 mg/dL (1.8-2.4)
[2025-01-16] MEDS ORDERED: VENTOLIN HFA18 GM INH (22:12)
[2025-01-16] MEDS ORDERED: CYCLOBENZAPRINE10 MG PO (22:13)
[2025-01-16 22:24] LABS: BILIRUBIN, URINE NEGATIVE (negative); BLOOD/HGB, URINE NEGATIVE (Negative); KETONE, URINE NEGATIVE (Negative); LEUK ESTERASE, URINE SMALL (negative); NITRITE, URINE NEGATIVE (negative); PH, URINE 5.5 (5-7)
[2025-01-16 22:32] LABS: BACTERIA, URINE 1+ /hpf (negative); CASTS, URINE NONE SEEN \\lpf; COLLECTION TYPE, URINE CLEAN CATCH; CRYSTALS, URINE NONE SEEN (0-1+); EPITHELIAL CELLS, URINE SQUAMOUS 2+ /lpf (0-1+); REFLEX CULTURE, URINE No (No)
[2025-01-16] MEDS ORDERED: MACROBID 100 M100 MG PO (22:50)
[2025-01-16] MEDS ORDERED: NITROFURANTOIN MONOHYD MACROCR 100 MG HOME.PACK PO ONE (23:00)
[2025-01-16 23:21] VITALS: BP 111/58
== END 2025-01-16 23:23 | disposition home or self-care (01) ==
LOC: ED 20:43
PROVIDERS: Family Medicine
DX: S06.9X0A Unspecified intracranial injury without loss of consciousness, initial encounter (principal); N39.0 Urinary tract infection, site not specified; F17.200 Nicotine dependence, unspecified, uncomplicated; X58.XXXA Exposure to other specified factors, initial encounter; Z79.52 Long term (current) use of systemic steroids; Z79.899 Other long term (current) drug therapy; Z88.1 Allergy status to other antibiotic agents; Z88.5 Allergy status to narcotic agent
CPT/HCPCS: 36415; 70450; 70496; 70498; 80053; 81001; 83735; 84703; 85025; 85060; 99284-25; Q9967